=== PATIENT | male | born 1970 | race Caucasian/White ===

== ENCOUNTER 2020-03-28 12:37 | Inpatient (IN) | payer SELFPAY ==
[2020-03-28] MEDS ORDERED: NA CHLORIDE 0.9% 250 ML ONE (13:13)
[2020-03-28] MEDS ORDERED: ONDANSETRON 4 MG/2 ML VIAL ONE (13:13)
[2020-03-28] MEDS ORDERED: MORPHINE 4 MG/ML SYR ONE ×2 (13:13→16:18)
[2020-03-28] MEDS ORDERED: PANTOPRAZOLE 40 MG INJ ONE (13:13)
[2020-03-28 13:36] LABS: Protime INR 1.07
[2020-03-28 13:37] LABS: Absolute Lymphocytes (CBC) 1.1 K/uL (0.7-4.9); Basophils % 0.4 % (0-1.3); Hematocrit 42.3 % (39.6-49.0); Lymphocytes % 9.5 % (15.3-44.8); MPV 8.5 fL (7.6-11.3); RBC Red Blood Cell Count 5.04 M/uL (4.33-5.43)
[2020-03-28 13:49] LABS: ALT/SGPT 33 U/L (12-78); AST/SGOT 27 U/L (15-37); Albumin 3.6 g/dL (3.4-5.0); Alkaline Phosphatase 83 U/L (45-117); BUN Blood Urea Nitrogen 10 mg/dL (7-18); Bicarbonate 27 mmol/L (21-32); Bilirubin Direct 0.2 mg/dL (0-0.2); Bilirubin Total 0.6 mg/dL (0.2-1.0); Glucose Level 122 mg/dL (74-106); Lipase 69 U/L (73-393); Potassium 3.4 mmol/L (3.5-5.1); Sodium Level 138 mmol/L (136-145); Troponin (Emerg Dept Use Only) < 0.02 ng/mL (0.0-0.045)
[2020-03-28] MEDS ORDERED: ACETAMINOPHEN 500 MG TAB PO PRN (14:11)
[2020-03-28] MEDS ORDERED: NA CHLORIDE 0.9% 250 ML IV SCH (15:00)
--- NOTE | 2020-03-28 15:01 | P.HP ---
Certification for Inpatient Patient admitted to: Inpatient With expected LOS: >2 Midnights Patient will require the following post-hospital care: None Practitioner: I am a practitioner with admitting privileges, knowledge of patient current condition, hospital course, and medical plan of care. Services: Services provided to patient in accordance with Admission requirements found in Title 42 Section 412.3 of the Code of Federal Regulations Patient History Date of Service: 03/28/20 Reason for admission: GI Bleed History of Present Illness: 49 yo male with a past medical history of Barrets esophagitis , GERD and HTN admitted with GI bleed started today. Patient states that he started having abdominal pain associated with nausea and vomiting and was found to have some streaks of blood in the vomitus. Denies any fever or chills. Abdominal pain is located in the epigastric region, 8 of 10 severity, sharp nonradiating. Denies any melena. Has similar previous history is and underwent multiple EGDs in the past. Patient is followed by Dr. Kaiser The patient was assessed in the ER and was admitted for further management. Allergies No Known Allergies Allergy (Verified 03/07/14 07:09) Home medications list reviewed: Yes Home Medications: Esomeprazole Mag Trihydrate [Nexium] 40 mg PO DAILY 05/13/16 Amox/Clavulanate [Augmentin 875-125 Tab] 1 each PO BID #14 tab 05/16/16 Doxycycline Hyclate 100 mg PO BID #14 tablet 05/16/16 Hydrocodone Bit/Acetaminophen [Joppa 10-325 Tablet] 1 each PO Q6HP PRN #60 tablet 05/16/16 - Past Medical/Surgical History Diabetic: No Past Medical History: Reviewed- Non-Contributory -: Vazquez's Esophagitis -: Hypertension Past Surgical History: Reviewed- Non-Contributory -: EGD/COLONOSCOPY - Family History Family History: Reviewed- Non-Contributory - Family History Father -: Hypertension Mother -: Hypertension - Social History Smoking Status: Current some day smoker Alcohol use: No CD- Drugs: No Caffeine use: Yes Review of Systems 10-point ROS is otherwise unremarkable Physical Examination - Vital Signs Temperature: 97.8 F Blood Pressure: 161/78 Pulse: 76 Respirations: 18 Pulse Ox (%): 96 - Physical Exam General: Alert, Oriented x3, Moderate distress HEENT: Atraumatic, Normocephalic Neck: Supple, 2+ carotid pulse no bruit Respiratory: Clear to auscultation bilaterally, Normal air movement Cardiovascular: Normal pulses, Regular rate/rhythm, Normal S1 S2 Capillary refill: <2 Seconds Gastrointestinal: W/out hepatosplenomegaly, Other (Epigastric tenderness, no hepatosplenomegaly appreciated. ), Tenderness Musculoskeletal: No clubbing, No swelling Integumentary: No rashes, No significant lesion Neurological: Normal speech, Normal strength at 5/5 x4 extr Lymphatics: No axilla or inguinal lymphadenopathy Rectal: Deferred - Studies Laboratory Data (last 24 hrs) 03/28/20 13:23: PT 12.6 H, INR 1.07, APTT 34.8 03/28/20 13:23: Sodium 138, Potassium 3.4 L, BUN 10, Creatinine 1.03, Glucose 122 H, Total Bilirubin 0.6, AST 27, ALT 33, Alkaline Phosphatase 83, Lipase 69 L 03/28/20 13:23: WBC 11.7 H, Hgb 13.7, Hct 42.3, Plt Count 210 Assessment and Plan - Problems (Diagnosis) (1) Hematemesis Current Visit: No Status: Active (2) Acute upper gastrointestinal hemorrhage Current Visit: No Status: Acute (3) Vazquez's esophagus Current Visit: No Status: Acute (4) Epigastric pain Current Visit: No Status: Acute (5) Gastroesophageal reflux disease Current Visit: No Status: Chronic (6) Hypertension Current Visit: No Status: Chronic (7) Hypokalemia Current Visit: No Status: Acute - Plan Acute upper GI bleed Hematemesis Vazquez's esophagitis GERD Hypokalemia Hypertension Acute epigastric pain Plan Monitor closely under telemetry NPO Serial H&Hs Transfuse p.r.n. IV hydration Replace electrolytes Pain control Protonix drip will get an ultrasound of the abdomen GI consult Titrate antihypertensives GI/DVT prophylaxis Discharge Plan: Home Plan to discharge in: 48 Hours - Advance Directives Does patient have a Living Will: No Does patient have a Durable POA for Healthcare: No Time Spent Managing Pts Care (In Minutes): 45
[2020-03-28] MEDS ORDERED: PROMETHAZINE INJ 25 MG/ML AMP ONE (15:50)
[2020-03-28] MEDS ORDERED: NA CHLORIDE 0.9% 100 ML IV ONE (15:50)
[2020-03-28 16:24] VITALS: BMI 25.7
[2020-03-28 16:52] LABS: Blood Morphology Comment NOTED (NOT SEEN); Platelet Estimate ADEQ; Urine White Blood Cell Casts OK
[2020-03-28 16:53] LABS: Poikilocytosis 1+
[2020-03-28 16:59] LABS: Hematocrit 41.1 % (39.6-49.0)
[2020-03-28] MEDS: NA CHLORIDE 0.9% 1,000 ML IV SCH (17:15)
[2020-03-28] MEDS: HYDRALAZINE HCL 20 MG/ML VIAL IV PRN ×2 (17:34→23:38)
[2020-03-28] MEDS ORDERED: KCL 10 MEQ/100 ML IVPB 10 MEQ/100 ML BAG IV SCH (18:00)
[2020-03-28 18:46] LABS: Hematocrit 41.7 % (39.6-49.0)
[2020-03-28] MEDS ORDERED: KCL 20 MEQ/100 mL IVPB 20 MEQ/100 ML BAG IV SCH (20:00)
[2020-03-28] MEDS: MORPHINE 2 MG/ML SYR IV PRN (20:09)
[2020-03-28] MEDS: ONDANSETRON 4 MG/2 ML VIAL IV PRN (20:13)
--- NOTE | 2020-03-28 20:17 | RAD REPORT ---
EXAM DESCRIPTION: US - Abdomen Exam Complete - 03/28/2020 7:15 pm CLINICAL HISTORY: Abdominal pain. Abdominal Pain COMPARISON: No comparisons FINDINGS: The liver is normal in size, shape and echotexture. No focal liver lesions or intrahepatic biliary dilatation is seen. Tiny gallbladder stones suspected without evidence of wall thickening or pericholecystic fluid. Comm on bile duct is normal in caliber measuring 3 mm. Both kidneys are normal in size, shape and echotexture. No hydronephrosis, focal lesion of concern or perinephric fluid. The spleen is normal in size measuring 10 cm. The pancreas and aorta are obscured by bowel gas. The visualized aspects of the IVC are grossly normal. IMPRESSION: Cholelithiasis.
[2020-03-28 23:07] LABS: Hematocrit 40.7 % (39.6-49.0)
[2020-03-28] MEDS: PANTOPRAZOLE INJ 80 MG in NA CHLORIDE 0.9% 250 ML IV SCH (23:39)
[2020-03-29] MEDS: NA CHLORIDE 0.9% 1,000 ML IV SCH ×2 (01:10→09:54)
[2020-03-29] MEDS: MORPHINE 2 MG/ML SYR IV PRN ×4 (01:11→20:42)
[2020-03-29] MEDS: METOCLOPRAMIDE 10 MG/2mL INJ IV SCH (01:11)
[2020-03-29 04:52] LABS: Absolute Lymphocytes (CBC) 1.5 K/uL (0.7-4.9); Basophils % 0.5 % (0-1.3); Hematocrit 39.8 % (39.6-49.0); Lymphocytes % 12.2 % (15.3-44.8); MPV 8.8 fL (7.6-11.3); RBC Red Blood Cell Count 4.74 M/uL (4.33-5.43)
[2020-03-29 05:06] LABS: BUN Blood Urea Nitrogen 12 mg/dL (7-18); Bicarbonate 26 mmol/L (21-32); Glucose Level 104 mg/dL (74-106); Potassium 3.3 mmol/L (3.5-5.1); Sodium Level 138 mmol/L (136-145)
[2020-03-29] MEDS: ONDANSETRON 4 MG/2 ML VIAL IV PRN (05:53)
--- NOTE | 2020-03-29 07:09 | EKG ---
Test Date: 2020-03-28 Test Time: 13:04:25 Lung Puller: ROM MEASUREMENT RESULTS: Intervals: Rate: 55 MI: 134 QRSD: 114 QT: 438 QTc: 419 [place]: P: 49 MI: 134 QRS: 50 T: 30 INTERPRETIVE STATEMENTS: Sinus bradycardia with marked sinus arrhythmia Otherwise normal ECG Compared to ECG 02/10/2016 10:08:07 No significant changes Electronically Signed On 03-29-20 07:08:03 CDT by Juan Carlos Mcneill
[2020-03-29] MEDS: KCL 20 MEQ/100 mL IVPB 20 MEQ/100 ML BAG IV SCH ×2 (09:00→11:00)
[2020-03-29] MEDS: PANTOPRAZOLE INJ 80 MG in NA CHLORIDE 0.9% 250 ML IV SCH ×2 (09:00→20:39)
[2020-03-29] MEDS: HYDRALAZINE HCL 20 MG/ML VIAL IV PRN (11:52)
--- NOTE | 2020-03-29 12:36 | P.PN ---
Subjective Date of Service: 03/29/20 Chief Complaint: GI Bleed Subjective: No new changes, Improving Review of Systems 10-point ROS is otherwise unremarkable Physical Examination - Vital Signs Temperature: 99.3 F Blood Pressure: 176/82 Pulse: 94 Respirations: 20 Pulse Ox (%): 97 - Physical Exam General: Alert, In no apparent distress HEENT: Atraumatic, Normocephalic Neck: Supple, 2+ carotid pulse no bruit Respiratory: Clear to auscultation bilaterally, Normal air movement Cardiovascular: Normal pulses, Regular rate/rhythm Capillary refill: <2 Seconds Gastrointestinal: Soft and benign, W/out hepatosplenomegaly Musculoskeletal: No clubbing, No swelling Integumentary: No rashes, No breakdown Neurological: Normal speech, Normal strength at 5/5 x4 extr Lymphatics: No axilla or inguinal lymphadenopathy Rectal: Deferred - Studies Laboratory Data (last 24 hrs) 03/28/20 13:23: PT 12.6 H, INR 1.07, APTT 34.8 03/28/20 13:23: Sodium 138, Potassium 3.4 L, BUN 10, Creatinine 1.03, Glucose 122 H, Total Bilirubin 0.6, AST 27, ALT 33, Alkaline Phosphatase 83, Lipase 69 L 03/28/20 13:23: WBC 11.7 H, Hgb 13.7, Hct 42.3, Plt Count 210 Laboratory Last Values WBC 11.7 K/uL (4.3-10.9) H 03/28/20 13:23 RBC 5.04 M/uL (4.33-5.43) 03/28/20 13:23 Hgb 13.7 g/dL (13.6-17.9) 03/28/20 13:23 Hct 42.3 % (39.6-49.0) 03/28/20 13:23 MCV 83.9 fL (80-100) 03/28/20 13:23 MCH 27.1 pg (27.0-35.0) 03/28/20 13:23 MCHC 32.3 g/dL (32.0-36.0) 03/28/20 13:23 RDW 15.0 % (12.1-15.2) 03/28/20 13:23 Plt Count 210 K/uL (152-406) 03/28/20 13:23 MPV 8.5 fL (7.6-11.3) 03/28/20 13:23 Neutrophils % 85.9 % (41.7-73.7) H 03/28/20 13:23 Lymphocytes % 9.5 % (15.3-44.8) L 03/28/20 13:23 Monocytes % 4.0 % (3.3-12.3) 03/28/20 13:23 Eosinophils % 0.2 % (0-4.4) 03/28/20 13:23 Basophils % 0.4 % (0-1.3) 03/28/20 13:23 Absolute Neutrophils 10.1 K/uL (1.8-8.0) H 03/28/20 13:23 Absolute Lymphocytes 1.1 K/uL (0.7-4.9) 03/28/20 13:23 Absolute Monocytes 0.5 K/uL (0.1-1.3) 03/28/20 13:23 Absolute Eosinophils 0.0 K/uL (0-0.5) 03/28/20 13:23 Absolute Basophils 0.0 K/uL (0-0.5) 03/28/20 13:23 Poikilocytosis 1+ 03/28/20 13:23 Morphology Comment Noted (NOT SEEN) 03/28/20 13:23 PT 12.6 SECONDS (9.5-12.5) H 03/28/20 13:23 INR 1.07 03/28/20 13:23 APTT 34.8 SECONDS (24.3-36.9) 03/28/20 13:23 Sodium 138 mmol/L (136-145) 03/28/20 13:23 Potassium 3.4 mmol/L (3.5-5.1) L 03/28/20 13:23 Chloride 103 mmol/L (98-107) 03/28/20 13:23 Carbon Dioxide 27 mmol/L (21-32) 03/28/20 13:23 BUN 10 mg/dL (7-18) 03/28/20 13:23 Creatinine 1.03 mg/dL (0.55-1.3) 03/28/20 13:23 Estimated GFR 76 mL/min (=/>90) L 03/28/20 13:23 Glucose 122 mg/dL (74-106) H 03/28/20 13:23 Calcium 8.8 mg/dL (8.5-10.1) 03/28/20 13:23 Total Bilirubin 0.6 mg/dL (0.2-1.0) 03/28/20 13:23 Direct Bilirubin 0.2 mg/dL (0-0.2) 03/28/20 13:23 AST 27 U/L (15-37) 03/28/20 13:23 ALT 33 U/L (12-78) 03/28/20 13:23 Alkaline Phosphatase 83 U/L (45-117) 03/28/20 13:23 Rapid Troponin I < 0.02 ng/mL (0.0-0.045) 03/28/20 13:23 Serum Total Protein 8.0 g/dL (6.4-8.2) 03/28/20 13:23 Albumin 3.6 g/dL (3.4-5.0) 03/28/20 13:23 Globulin 4.4 g/dL (2.3-3.5) H 03/28/20 13:23 Albumin/Globulin Ratio 0.8 (1.1-1.8) L 03/28/20 13:23 Lipase 69 U/L (73-393) L 03/28/20 13:23 ABO/Rh A POSITIVE 03/28/20 13:23 Solid Phase Ab Screen Negative 03/28/20 13:23 Assessment & Plan - Problems (Diagnosis) (1) Hematemesis Current Visit: No Status: Active (2) Acute upper gastrointestinal hemorrhage Current Visit: No Status: Acute (3) Vazquez's esophagus Current Visit: No Status: Acute (4) Epigastric pain Current Visit: No Status: Acute (5) Gastroesophageal reflux disease Current Visit: No Status: Chronic (6) Hypertension Current Visit: No Status: Chronic (7) Hypokalemia Current Visit: No Status: Acute Physician Review Additional Text: Acute upper GI bleed Hematemesis Vazquez's esophagitis GERD Hypokalemia Hypertension Acute epigastric pain Plan Monitor closely under telemetry NPO Serial H&Hs noted Transfuse p.r.n. IV hydration Replace electrolytes Pain control on Protonix drip ultrasound of the abdomen findings noted GI consult appreciated EGD today Titrate antihypertensives GI/DVT prophylaxis Time Spent Managing Pts Care (In Minutes): 35
[2020-03-29] MEDS ORDERED: LIDOCAINE 1% MPF 5 ML VIAL ONE (15:30)
[2020-03-29] MEDS ORDERED: propofoL 200 MG/20 ML VIAL IV ONE (15:30)
[2020-03-29] MEDS ORDERED: EPINEPHRINE/PF 1 MG/ML AMP ONE (16:25)
--- NOTE | 2020-03-29 17:03 | ENDO RPT ---
[address], [address] EGD PROCEDURE REPORT EXAM DATE: 03/29/2020 PATIENT NAME: Jake Diana MR#: [id number] BIRTHDATE: 1970 ATTENDING: Fran Kaiser Dr STATUS: inpatient - 7 HAND PACKER/PACKAGER: Fide JACKMAN and Terrence Terry CST INDICATIONS: The patient is a 49 yr old Male here for an EGD due to hematemesis and anemia PROCEDURE PERFORMED: EGD with biopsy MEDICATIONS: Per Anesthesia. TOPICAL ANESTHETIC: none CONSENT: The patient understands the risks and benefits of the procedure and understands that these risks include, but are not limited to: sedation, allergic reaction, infection, perforation and/or bleeding. Alternative means of evaluation and treatment include, among others: physical exam, x-rays, and/or surgical intervention. The patient elects to proceed with this endoscopic procedure. DESCRIPTION OF PROCEDURE: During intra-op preparation period all mechanical medical equipment was checked for proper function. Hand hygiene and appropriate measures for infection prevention was taken. Procedure, possible complications, and alternatives including but not limited to the possibility of bleeding, perforation, tear, infection, sepsis, need for surgery, need for blood transfusion, and anesthesia related complications were explained to the patient. After the risks, benefits and alternatives of the procedure were thoroughly explained, Informed consent was verified, confirmed and timeout was successfully executed by the treatment team. The patient was placed in the left lateral position. The patient was anesthetized with topical anesthesia. Through the anesthetized oropharyngeal area, the scope was passed without any difficulty. The [id number] ([id number]) endoscope was introduced through the mouth and advanced to the second portion of the duodenum. Retroflexed views revealed a large hiatal hernia. The gastroscope was then slowly withdrawn and removed. LA Class C esophagitis was found in the lower esophagus. Multiple (2) small 3 A large hiatal hernia was found Mild gastritis was found in the body of the stomach. ADVERSE EVENTS: There were no complications. IMPRESSIONS: 1. LA Class C esophagitis in the lower esophagus esophagus 3. Large hiatal hernia (6 cm HH, DI at 43 cm, and GEJ at 37 cm from the gums) 4. Mild gastritis in the body of the stomach, s/p biopsies 5. No active bleeding nor old blood noted. GI bleed possibly from esophagitis with 2 small esophageal ulcers RECOMMENDATIONS: 1. await biopsy results 2. continue acid suppression therapy REPEAT EXAM: Fran Kaiser Dr eSigned: Fran Kaiser Dr 03/29/2020 5:03 PM cc: CPT CODES: ICD9 CODES: PATIENT NAME: Jake DianaKassandra MR#: [id number]
[2020-03-30] MEDS: NA CHLORIDE 0.9% 1,000 ML IV SCH ×3 (00:38→18:13)
[2020-03-30] MEDS: METOCLOPRAMIDE 10 MG/2mL INJ IV SCH (00:42)
[2020-03-30 06:32] LABS: BUN Blood Urea Nitrogen 11 mg/dL (7-18); Bicarbonate 24 mmol/L (21-32); Glucose Level 93 mg/dL (74-106); Potassium 3.7 mmol/L (3.5-5.1); Sodium Level 138 mmol/L (136-145)
[2020-03-30] MEDS: PANTOPRAZOLE INJ 80 MG in NA CHLORIDE 0.9% 250 ML IV SCH (06:48)
[2020-03-30 07:07] LABS: Absolute Lymphocytes (CBC) 1.4 K/uL (0.7-4.9); Basophils % 0.7 % (0-1.3); Hematocrit 38.2 % (39.6-49.0); Lymphocytes % 16.4 % (15.3-44.8); MPV 9.4 fL (7.6-11.3); RBC Red Blood Cell Count 4.55 M/uL (4.33-5.43)
[2020-03-30] MEDS: MORPHINE 2 MG/ML SYR IV PRN (07:57)
[2020-03-30] MEDS: ONDANSETRON 4 MG/2 ML VIAL IV PRN ×2 (09:33→17:09)
[2020-03-30] MEDS ORDERED: FENTANYL CITR 100 MCG/2 ML IV ONE (09:42)
--- NOTE | 2020-03-30 09:59 | P.PN ---
Subjective Date of Service: 03/30/20 Chief Complaint: GI Bleed, hematemesis Subjective: New changes (No further hematemesis noted. But he continues to have RADHA pain, ~ 6/10 requiring Morphine 2 mg IV q 4 hours with complaints of nausea not resolved with Zofran 4 mg. He had cholelithiasis on U/S abdomen on admission but no pericholecystic fluid or other abnormalities on U/S.) Review of Systems 10-point ROS is otherwise unremarkable General: Weakness Gastrointestinal: Nausea, Abdominal Pain Physical Examination - Vital Signs Temperature: 98.1 F Blood Pressure: 180/87 Pulse: 86 Respirations: 17 Pulse Ox (%): 97 - Physical Exam General: Alert, Oriented x3, Cooperative, Mild distress (due to RADHA pain and nausea) HEENT: Atraumatic, Normocephalic, PERRLA, EOMI Neck: Supple Respiratory: Normal air movement Cardiovascular: Normal pulses Gastrointestinal: No rebound, Tenderness (RADHA), Guarding (mild) Neurological: Normal speech, Normal strength at 5/5 x4 extr Assessment And Plan - Current Problems (Diagnosis) (1) Nausea Current Visit: Yes Status: Acute (2) Ulcer, esophagus Current Visit: Yes Status: Acute (3) Esophagitis Current Visit: Yes Status: Acute (4) Gastritis Current Visit: Yes Status: Acute (5) Hiatal hernia Current Visit: Yes Status: Acute (6) Hematemesis Current Visit: No Status: Active (7) Acute upper gastrointestinal hemorrhage Current Visit: No Status: Acute (8) Epigastric pain Current Visit: No Status: Acute - Plan REC:1) continue PPI therapy, but can decrease from drip to IV q 12 hours 2) check HIDA scan 3) switch Morphine to Fentanyl (see if nausea resolves) 4) add prn Phenergan IV to Zofran for nausea control 5) monitor labs Physician Review Additional Text: Acute upper GI bleed Hematemesis Vazquez's esophagitis GERD Hypokalemia Hypertension Acute epigastric pain Plan Monitor closely under telemetry NPO Serial H&Hs noted Transfuse p.r.n. IV hydration Replace electrolytes Pain control on Protonix drip ultrasound of the abdomen findings noted GI consult appreciated EGD today Titrate antihypertensives GI/DVT prophylaxis
[2020-03-30] MEDS ORDERED: SODIUM CHLORIDE 0.9% 10ML INJ IV PRN (10:07)
--- NOTE | 2020-03-30 10:48 | P.PN ---
Subjective Date of Service: 03/30/20 Chief Complaint: GI Bleed, hematemesis Patient is complaining of abdominal pain and nausea after eating liquid diet. Endoscopy report reviewed: 2 small esophageal ulcers will could be the source of GI bleed. Physical Examination - Vital Signs Temperature: 98.1 F Blood Pressure: 180/87 Pulse: 86 Respirations: 17 Pulse Ox (%): 97 - Physical Exam General: Alert, In no apparent distress, Oriented x3 HEENT: Mucous membr. moist/pink Neck: Supple, JVD not distended Respiratory: Clear to auscultation bilaterally, Normal air movement Cardiovascular: No edema, Regular rate/rhythm, Normal S1 S2 Gastrointestinal: Normal bowel sounds, Non-distended, Tenderness (Epigastrium) Musculoskeletal: No swelling, No erythema Integumentary: No rashes Neurological: Normal speech, Normal strength at 5/5 x4 extr Assessment And Plan Physician Review Additional Text: Acute upper GI bleed Hematemesis Vazquez's esophagitis GERD Hypokalemia Hypertension Acute epigastric pain Plan GI input appreciated. Continue IV protonix RUQ sonogram reports multiple small gallstones, no evidence of cholecystitis. HIDA scan requested by GI Slight drop in hemoglobin otherwise stable. Transfuse p.r.n. Contain IV hydration Replace electrolytes Pain control: Fentanyl IV prn
[2020-03-30] MEDS: PROMETHAZINE INJ 25 MG/ML AMP IV PRN ×2 (12:50→19:46)
[2020-03-30] MEDS ORDERED: PROMETHAZINE INJ 25 MG/ML AMP IV ONE (13:37)
[2020-03-30] MEDS: FENTANYL CITR 100 MCG/2 ML IV PRN ×2 (15:11→19:41)
[2020-03-30] MEDS: PANTOPRAZOLE 40 MG INJ IVP SCH (18:10)
[2020-03-31] MEDS: PROMETHAZINE INJ 25 MG/ML AMP IV PRN ×2 (02:28→08:34)
[2020-03-31] MEDS: NA CHLORIDE 0.9% 1,000 ML IV SCH ×2 (02:29→13:38)
[2020-03-31] MEDS: ONDANSETRON 4 MG/2 ML VIAL IV PRN (03:33)
[2020-03-31] MEDS ORDERED: LORazepam 2 MG/ML VIAL IV ONE (04:57)
[2020-03-31 05:49] VITALS: O2SAT 98
--- NOTE | 2020-03-31 08:10 | RAD REPORT ---
EXAM DESCRIPTION: NM - Hepatobiliary System W/ Ph - 03/31/2020 6:29 am CLINICAL HISTORY: Abdominal pain TECHNIQUE: The patient was administered 6.2 millicuries technetium Choletec intravenous and images o f the abdomen obtained for 43 minutes. Patient was given 1.8 micrograms Kinevac intravenously. After 9 minutes to the patient could not continue to lay still and the examination was terminated. A gallbl adder ejection fraction could not be obtained. FINDINGS Liver demonstrates prompt radiotracer uptake. Activity is seen within the gallbladder by 15 minutes. Uptake is seen within small bowel. The gallbladder ejection fraction could not be obtained IMPRESSION: No evidence of acute cholecystitis
[2020-03-31] MEDS: PANTOPRAZOLE 40 MG INJ IVP SCH (08:34)
--- NOTE | 2020-03-31 09:02 | P.PN ---
Subjective Date of Service: 03/31/20 Chief Complaint: GI Bleed, hematemesis Patient was complaining of abdominal pain and nausea overnight. Physical Examination - Vital Signs Temperature: 98.5 F Blood Pressure: 142/78 Pulse: 92 Respirations: 20 Pulse Ox (%): 96 - Physical Exam General: In no apparent distress, Oriented x3 HEENT: Mucous membr. moist/pink Respiratory: Clear to auscultation bilaterally, Normal air movement Cardiovascular: No edema, Normal pulses, Regular rate/rhythm Gastrointestinal: Normal bowel sounds, Tenderness (Diffuse) Musculoskeletal: No swelling, No erythema Integumentary: No rashes Assessment And Plan Physician Review Additional Text: Acute upper GI bleed Hematemesis Vazquez's esophagitis GERD Hypokalemia Hypertension Acute epigastric pain Plan Continue IV protonix RUQ sonogram reports multiple small gallstones, no evidence of cholecystitis. HIDA scan: No evidence of acute cholecystitis. Hemoglobin is stable Contain IV hydration Replace electrolytes Pain control: Fentanyl IV prn GI to follow.
[2020-03-31 09:31] LABS: Absolute Lymphocytes (CBC) 1.2 K/uL (0.7-4.9); Basophils % 0.7 % (0-1.3); Hematocrit 40.4 % (39.6-49.0); Lymphocytes % 13.2 % (15.3-44.8); MPV 8.4 fL (7.6-11.3); RBC Red Blood Cell Count 4.85 M/uL (4.33-5.43)
[2020-03-31 09:57] LABS: ALT/SGPT 19 U/L (12-78); AST/SGOT 18 U/L (15-37); Alkaline Phosphatase 68 U/L (45-117); BUN Blood Urea Nitrogen 8 mg/dL (7-18); Bicarbonate 25 mmol/L (21-32); Bilirubin Total 0.4 mg/dL (0.2-1.0); Glucose Level 107 mg/dL (74-106); Potassium 3.4 mmol/L (3.5-5.1); Sodium Level 135 mmol/L (136-145)
--- NOTE | 2020-03-31 17:01 | P.DS ---
Admission Date: 03/28/20 Discharge Date: 03/31/20 Disposition: ROUTINE DISCHARGE Discharge Condition: GOOD Reason for Admission: GI Bleed, hematemesis - Problems (1) Hematemesis Status: Active (2) Acute upper gastrointestinal hemorrhage Status: Acute (3) Vazquez's esophagus Status: Acute (4) Epigastric pain Status: Acute (5) Gastroesophageal reflux disease Status: Chronic (6) Hypertension Status: Chronic (7) Hypokalemia Status: Acute Brief History of Present Illness: 49 yo male with a past medical history of Barrets esophagitis , GERD and HTN admitted with GI bleed started today. Patient states that he started having abdominal pain associated with nausea and vomiting and was found to have some streaks of blood in the vomitus. Denies any fever or chills. Abdominal pain is located in the epigastric region, 8 of 10 severity, sharp nonradiating. Denies any melena. Has similar previous history is and underwent multiple EGDs in the past. Patient is followed by Dr. Kaiser The patient was assessed in the ER and was admitted for further management. Hospital Course: The patient was admitted and was started on Protonix drip. Hemoglobin and hematocrit were serially monitored. GI was consulted. Pain was controlled well. GI performed an endoscopy which showed esophagitis with small esophageal ulcerations along with gastritis and had a large hiatal hernia. He also had a HIDA scan which was negative for acute cholecystitis. He did not had any further episodes of GI bleed. Patient wanted go home and is being discharged home today in stable condition with advice to follow up with PCP in 1 week and also with GI in 1-2 weeks Vital Signs/Physical Exam: Temp Pulse Resp BP Pulse Ox 98.9 F 90 18 152/79 H 94 03/31/20 12:00 03/31/20 12:00 03/31/20 12:00 03/31/20 12:03/31/20 12:00 General: Alert, In no apparent distress HEENT: Atraumatic, Normocephalic Neck: Supple, 2+ carotid pulse no bruit Respiratory: Clear to auscultation bilaterally, Normal air movement Cardiovascular: Normal pulses, Regular rate/rhythm Capillary refill: <2 Seconds Gastrointestinal: Soft and benign, W/out hepatosplenomegaly Musculoskeletal: No clubbing, No swelling Integumentary: No rashes Neurological: Normal speech, Normal strength at 5/5 x4 extr Lymphatics: No axilla or inguinal lymphadenopathy Rectal: Deferred Laboratory Data at Discharge: WBC 9.4 K/uL (4.3-10.9) 03/31/20 09:21 Hgb 13.2 g/dL (13.6-17.9) L 03/31/20 09:21 Hct 40.4 % (39.6-49.0) 03/31/20 09:21 Plt Count 195 K/uL (152-406) 03/31/20 09:21 PT 12.6 SECONDS (9.5-12.5) H 03/28/20 13:23 INR 1.07 03/28/20 13:23 APTT 34.8 SECONDS (24.3-36.9) 03/28/20 13:23 Sodium 135 mmol/L (136-145) L 03/31/20 09:21 Potassium 3.4 mmol/L (3.5-5.1) L 03/31/20 09:21 BUN 8 mg/dL (7-18) 03/31/20 09:21 Creatinine 0.81 mg/dL (0.55-1.3) 03/31/20 09:21 Glucose 107 mg/dL (74-106) H 03/31/20 09:21 Total Bilirubin 0.4 mg/dL (0.2-1.0) 03/31/20 09:21 AST 18 U/L (15-37) 03/31/20 09:21 ALT 19 U/L (12-78) 03/31/20 09:21 Alkaline Phosphatase 68 U/L (45-117) 03/31/20 09:21 Lipase 69 U/L (73-393) L 03/28/20 13:23 Home Medications: Pantoprazole [Protonix Tab] 40 mg PO BID #60 tab 03/31/20 New Medications: Pantoprazole [Protonix Tab] 40 mg PO BID #60 tab Diet: Regular Activity: Ad marquita Followup: Fran Kaiser MD [ASSOCIATE-ACTIVE - CAN ADMIT] -
[2020-03-31 17:45] VITALS: BP 146/92; TEMP 98.6
[2020-04-02] MEDS ORDERED: FENTANYL 75 MCG/PATCH TD SCH (09:00)
--- NOTE | 2020-04-04 12:15 | ER ---
Nurse's Notes [facility] Name: Jake Diana Age: 49 yrs Sex: Male : 1970 Arrival Date: 03/28/2020 Time: 12:39 Bed 4 Private MD: Diagnosis: Hematemesis;Vazquez's esophagus Presentation: 03/28 12:51 Chief complaint: Anterior chest pain 10/10 and vomiting dark red blood x 2 days. hb Coronavirus screen: Proceed with normal triage. Ebola Screen: No symptoms or risks identified at this time. Initial Sepsis Screen: Does the patient meet any 2 criteria? No. Patient's initial sepsis screen is negative. Does the patient have a suspected source of infection? No. Patient's initial sepsis screen is negative. Risk Assessment: Do you want to hurt yourself or someone else? Patient reports no desire to harm self or others. Onset of symptoms was March 27, 2020. 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 - Social history:: Smoking status: Patient reports the use of cigarette tobacco products, smokes one pack cigarettes per day. - Family history:: not pertinent. - Hospitalizations: : No recent hospitalization is reported. Screenin:00 Abuse screen: Denies threats or abuse. Denies injuries from another. Nutritional jl7 screening: No deficits noted. Tuberculosis screening: No symptoms or risk factors identified. Fall Risk IV access (20 points). Assessment: 13:10 General: Appears in no apparent distress. uncomfortable, Behavior is cooperative, jl7 agitated. Pain: Complains of pain in "My esophagus" Pain does not radiate. Pain currently is 10 out of 10 on a pain scale. Quality of pain is described as burning, Pain began gradually, Is continuous. Neuro: Level of Consciousness is awake, alert, obeys commands. Cardiovascular: Patient's skin is warm and dry. Respiratory: Airway is patent Respiratory effort is even, unlabored, Respiratory pattern is regular, symmetrical. GI: Reports nausea. : No signs and/or symptoms were reported regarding the genitourinary system. Derm: Skin is pink, warm \\T\\ dry. 14:10 Reassessment: Patient appears in no apparent distress at this time. Patient and/or ca1 family updated on plan of care and expected duration. Pain level reassessed. Patient is alert, oriented x 3, equal unlabored respirations, skin warm/dry/pink. 15:16 Reassessment: Patient appears in no apparent distress at this time. Patient and/or ca1 family updated on plan of care and expected duration. Pain level reassessed. Patient is alert/active/playful, equal unlabored respirations, skin warm/dry/pink. 15:49 Reassessment: Patient appears in no apparent distress at this time. Patient is alert, ca1 oriented x 3, equal unlabored respirations, skin warm/dry/pink. 16:26 Reassessment: BP elevated. Notified provider. No order at this time. Notified gabby Aldana RN. Vital Signs: 12:51 BP 166 / 94; Pulse 58; Resp 20; Temp 97.7; Pulse Ox 100% on R/A; Weight 88.45 kg; hb Height 6 ft. 1 in. (185.42 cm); Pain 10/10; 13:04 BP 175 / 98; Pulse 61; Resp 16; Pain 10/10; jl7 13:30 BP 175 / 72; Pulse 56; Resp 16; Pulse Ox 96% ; jl7 14:00 BP 164 / 75; Pulse 57; Resp 19 S; Pulse Ox 94% on R/A; Pain 8/10; jl7 15:00 BP 167 / 91; Pulse 61; Resp 17 S; Pulse Ox 96% on R/A; ca1 15:49 BP 189 / 97; Pulse 87; Resp 20 S; Pulse Ox 99% on R/A; ca1 16:26 BP 182 / 95; Pulse 63; Resp 16 S; Pulse Ox 95% on R/A; ca1 12:51 Body Mass Index 25.73 (88.45 kg, 185.42 cm) hb ED Course: 12:39 Patient arrived in ED. ag5 12:52 Triage completed. hb 12:53 Arm band placed on. hb 12:56 Jayesh Mckeon MD is Attending Physician. rn 13:10 Patient has correct armband on for positive identification. Bed in low position. Call [facility] light in reach. Side rails up X 1. ekg monitor tech on. Pulse ox on. NIBP on. 13:10 EKG done, by ED staff, reviewed by Jayesh Mckeon MD. [facility] 13:24 Tim Rain, FERNANDO is Primary Nurse. [facility] 13:24 Initial lab(s) drawn, by nc, sent to lab. T\\T\\S collected, blood band applied to patient. jl7 Inserted saline lock: 22 gauge in left hand, using aseptic technique. Blood collected. 14:00 Patient maintains SpO2 saturation greater than 95% on room air. [facility] 14:09 Rocco Berman MD is Hospitalizing Provider. rn 15:16 No provider procedures requiring assistance completed. Patient transferred, IV remains ca1 in place. 16:45 Repeat lab(s) drawn. by [employer], sent to lab. ca1 Administered Medications: 13:24 Drug: Zofran (Ondansetron) 4 mg Route: IVP; Site: left hand; ca1 13:50 Follow up: Response: Nausea unchanged jl7 14:30 Follow up: Response: No adverse reaction; Nausea is decreased ca1 13:26 Drug: morphine 4 mg {Note: Rass - 0.} Route: IVP; Site: left hand; ca1 13:55 Follow up: Response: No adverse reaction; Pain is unchanged, physician notified 7 15:00 Follow up: Response: No adverse reaction; Pain is decreased; RASS: Alert and Calm (0) ca1 13:27 Drug: ProTONIX 40 mg Route: IVP; Site: left hand; ca1 14:01 Follow up: Response: No adverse reaction 7 15:47 Follow up: Response: No adverse reaction ca1 13:27 Drug: ProTONIX 8 mg/hr Route: IV; Rate: 25 ml/hr; Site: left hand; ca1 15:47 Follow up: Response: No adverse reaction; IV Status: Infusion continued upon admission ca1 16:10 Drug: morphine 4 mg {Note: RASS - 0.} Route: IVP; Site: left hand; ca1 16:28 Follow up: Response: No adverse reaction; Pain is decreased; RASS: Alert and Calm (0) ca1 16:14 Drug: Phenergan 12.5 mg Route: IVP; Site: left hand; ca1 16:28 Follow up: Response: No adverse reaction; Nausea is decreased ca1 Outcome: 14:10 Decision to Hospitalize by Provider. rn 16:07 Admitted to Med/surg accompanied by tech, via wheelchair, room 221, with chart, Report ca1 called to FERNANDO Aldana 16:07 Condition: stable 16:07 Instructed on the need for admit. 17:00 Patient left the ED. ca1 Signatures: Jayesh Mckeon MD MD rn Baxter, Heather, RN RN hb Martinez, Maria [facility] Tim Rain RN RN jl7 Roseanne Hammonds RN RN ca1 Obey Norman 5 Corrections: (The following items were deleted from the chart) 13:25 13:24 ProTONIX 8 mg/hr IV at 25 ml/hr in left hand ca1 ca1
--- NOTE | 2020-04-04 12:16 | EDPHYS ---
Physician Documentation [facility] Name: Jake Diana Age: 49 yrs Sex: Male : 1970 Arrival Date: 03/28/2020 Time: 12:39 Bed 4 Private MD: ED Physician Jayesh Mckeon HPI: 03/28 13:45 This 49 yrs old Male presents to ER via Ambulatory with complaints of rn hematemesis. 13:46 The patient presents to the emergency department vomiting blood, a small amount, dark rn brown. Onset: The symptoms/episode began/occurred today. Abdominal pain: located in the epigastric area. Modifying factors: The symptoms are alleviated by nothing, the symptoms are aggravated by nothing. Severity of symptoms: At their worst the symptoms were moderate in the emergency department the symptoms are unchanged. The patient has experienced similar episodes in the past. Reports has Vazquez's Esophagus, has done this multiple times, his GI doctor is doctor dewey, reports small amount of dark blood when vomiting, along with epigastric and chest pain. Identical to previous episodes. States compliant with antacids. . 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 - Social history:: Smoking status: Patient reports the use of cigarette tobacco products, smokes one pack cigarettes per day. - Family history:: not pertinent. - Hospitalizations: : No recent hospitalization is reported. ROS: 13:46 Constitutional: Negative for fever, chills, and weight loss, Eyes: Negative for injury, rn pain, redness, and discharge, Neck: Negative for injury, pain, and swelling, Cardiovascular: Negative for palpitations, and edema, Respiratory: Negative for shortness of breath, cough, wheezing, and pleuritic chest pain, Abdomen/GI: + abd pain and hematemesis MS/Extremity: Negative for injury and deformity, Skin: Negative for injury, rash, and discoloration, Neuro: Negative for headache, weakness, numbness, tingling, and seizure. Exam: 13:46 Constitutional: This is a well developed, well nourished patient who is awake, alert, rn wretching with small amount of dark emesis in bag Head/Face: Normocephalic, atraumatic. ENT: Dry MM Cardiovascular: Regular rate and rhythm. No pulse deficits. Respiratory: No increased work of breathing, no retractions or nasal flaring. Abdomen/GI: soft, non-tender MS/ Extremity: Pulses equal, no cyanosis. Neurovascular intact. Full, normal range of motion. Equal circumference. Neuro: Awake and alert, GCS 15, oriented to person, place, time, and situation. Cranial nerves II-XII grossly intact. Motor strength 5/5 in all extremities. Sensory grossly intact. 14:05 ECG was reviewed by the Attending Physician. rn Vital Signs: 12:51 BP 166 / 94; Pulse 58; Resp 20; Temp 97.7; Pulse Ox 100% on R/A; Weight 88.45 kg; hb Height 6 ft. 1 in. (185.42 cm); Pain 10/10; 13:04 BP 175 / 98; Pulse 61; Resp 16; Pain 10/10; jl7 13:30 BP 175 / 72; Pulse 56; Resp 16; Pulse Ox 96% ; jl7 14:00 BP 164 / 75; Pulse 57; Resp 19 S; Pulse Ox 94% on R/A; Pain 8/10; jl7 15:00 BP 167 / 91; Pulse 61; Resp 17 S; Pulse Ox 96% on R/A; ca1 15:49 BP 189 / 97; Pulse 87; Resp 20 S; Pulse Ox 99% on R/A; ca1 16:26 BP 182 / 95; Pulse 63; Resp 16 S; Pulse Ox 95% on R/A; ca1 12:51 Body Mass Index 25.73 (88.45 kg, 185.42 cm) hb MDM: 12:56 Patient medically screened. rn 14:08 Differential diagnosis: gastritis, varices, Vazquez's Esophagus. Data reviewed: vital rn signs, nurses notes, lab test result(s), EKG, and as a result, I will admit patient. Counseling: I had a detailed discussion with the patient and/or guardian regarding: the historical points, exam findings, and any diagnostic results supporting the discharge/admit diagnosis, lab results, radiology results, the need for further work-up and treatment in the hospital. Response to treatment: the patient's symptoms have mildly improved after treatment, and as a result, I will admit patient. Admission orders: after a detailed discussion of the patient's condition and case, the admit orders are written by me. ED course: Dr. Dewey contacted, pt states is his private GI doctor and has been seen for this multiple times in past, no need for emergent blood transfusion, will admit to Dr. Berman with Dr. Dewey consult. . 03/28 13:00 Order name: CBC with Diff rn 03/28 13:00 Order name: Basic Metabolic Panel; Complete Time: 14: rn 03/28 13:00 Order name: Protime (+inr); Complete Time: 13:45 rn 03/28 13:00 Order name: Ptt, Activated; Complete Time: 13:45 rn 03/28 13:00 Order name: LFT's; Complete Time: 14: rn 03/28 13:00 Order name: Lipase; Complete Time: 14: rn 03/28 13:00 Order name: Type And Screen; Complete Time: 16:16 rn 03/28 13:00 Order name: Troponin (emerg Dept Use Only); Complete Time: 14: rn 03/28 16:53 Order name: CBC Smear Scan EDMS 03/28 13:00 Order name: IV Start; Complete Time: 13:17 rn 03/28 13:00 Order name: EKG; Complete Time: 13:02 rn 03/28 13:00 Order name: EKG - Nurse/Tech; Complete Time: 13:02 rn EC:05 Rate is 55 beats/min. Rhythm is regular. QRS [place] is Normal. OK interval is normal. QRS rn interval is normal. QT interval is normal. No Q waves. T waves are Normal. No ST changes noted. Clinical impression: Sinus bradycardia. Interpreted by me. Reviewed by me. Administered Medications: 13:24 Drug: Zofran (Ondansetron) 4 mg Route: IVP; Site: left hand; ca1 13:50 Follow up: Response: Nausea unchanged jl7 14:30 Follow up: Response: No adverse reaction; Nausea is decreased ca1 13:26 Drug: morphine 4 mg {Note: Rass - 0.} Route: IVP; Site: left hand; ca1 13:55 Follow up: Response: No adverse reaction; Pain is unchanged, physician notified jl7 15:00 Follow up: Response: No adverse reaction; Pain is decreased; RASS: Alert and Calm (0) ca1 13:27 Drug: ProTONIX 40 mg Route: IVP; Site: left hand; ca1 14:01 Follow up: Response: No adverse reaction jl7 15:47 Follow up: Response: No adverse reaction ca1 13:27 Drug: ProTONIX 8 mg/hr Route: IV; Rate: 25 ml/hr; Site: left hand; ca1 15:47 Follow up: Response: No adverse reaction; IV Status: Infusion continued upon admission ca1 16:10 Drug: morphine 4 mg {Note: RASS - 0.} Route: IVP; Site: left hand; ca1 16:28 Follow up: Response: No adverse reaction; Pain is decreased; RASS: Alert and Calm (0) ca1 16:14 Drug: Phenergan 12.5 mg Route: IVP; Site: left hand; ca1 16:28 Follow up: Response: No adverse reaction; Nausea is decreased ca1 Disposition: 03/28/20 14:10 Hospitalization ordered by Rocco Berman for Observation. Preliminary diagnosis are Hematemesis, Vazquez's esophagus. - Bed requested for Telemetry/MedSurg (observation). - Status is Observation. ca1 - Condition is Stable. - Problem is an ongoing problem. - Symptoms have improved. Signatures: Dispatcher [employer] EDMS Jayesh Mckeon MD MD rn Marinas, Patrick, SINGEING TORCH OPERATOR SINGEING TORCH OPERATOR pm1 Laura Cuello RN RN Leona Garcia eb Roseanne Hammonds RN RN ca1 Tim Rain RN jl7 Corrections: (The following items were deleted from the chart) 15:50 14:10 Hospitalization Ordered by Rocco Berman MD for Observation. Preliminary eb diagnosis is Hematemesis; Vazquez's esophagus. Bed requested for Telemetry/MedSurg (observation). Status is Observation. Condition is Stable. Problem is an ongoing problem. Symptoms have improved. rn 17:00 15:50 03/28/2020 14:10 Hospitalization Ordered by Rocco Berman MD for Observation. ca1 Preliminary diagnosis is Hematemesis; Vazquez's esophagus. Bed requested for Telemetry/MedSurg (observation). Status is Observation. Condition is Stable. Problem is an ongoing problem. Symptoms have improved. eb
--- NOTE | 2020-04-05 18:36 | CON ---
Date of Consultation: 03/29/2020 Reason For Consultation: Hematemesis, nausea, vomiting. History Of Present Illness: Patient is a 49-year-old white male with history of acid reflux disease, bursitis, hypertension, depression, was admitted to the hospital due to upper gastrointestinal bleed ing with hematemesis. The patient states he has had 3-4 emesis in the past 24-36 hours with nausea, vomiting. He denies any significant abdominal pain, fevers, chills, change in bowel habits, change i n weight, melena, hematochezia, lightheadedness, or dizziness. He does note this is his third bout o f hematemesis since 1991, so he has had 2 prior bouts of this. Past Medical History: Significant for hypertension, vitiligo, and 2 prior bouts of hematemesis start ing since 1991. He has Vazquez's esophagus. Home Medications: Include Nexium, Augmentin, doxycycline, [place]. Allergies: NKDA. Social History: . No children. Tobacco, 1 pack per day. No alcohol. Family History: Father of myocardial infarction with a history of hypertension, coronary diseas e. Mother is alive with history of hypertension. Review of Systems: Patient has hematemesis, nausea, vomiting. He denies any abdominal pain, fevers, chills, night sweat s, change in bowel habits, change in weight, melena, hematochezia, lightheadedness, dizziness, hematu joan, or hemoptysis. Just some anxiety, no depression. No muscle aches, joint aches, backaches. No rashes. No seizure, syncope, chest pain, or shortness of breath. Physical Examination: Vital Signs: He is 6 feet 1 inch, 104 pounds, BMI of 25.7. He has a temperature 99.3 degrees Fahrenheit, pulse 94, respirations 20, blood pressure 176/82, O2 sa turation 97%. General: He is a well-nourished, well-developed male lying in bed, mildly disheveled, mild distress due to his anxiety over his vomiting blood. HEENT: Normocephalic, atraumatic. Anicteric. Pupils equal, round, reactive to light. Extraocular movements intact. Oropharynx is clear. Neck: Supple. No masses. Respirations: Clear to auscultation bilaterally cardiac: Regular rate and rhythm. No gallops or ru bs. Abdomen: Positive bowel sounds. Soft, nontender, nondistended. No hepatosplenomegaly. Extremities: No clubbing, cyanosis, or edema. 2+ pulses. Neuro: Alert and oriented x3. Grossly nonfocal. 5/5 motor strength and sensation to light touch. Laboratory Data: Patient has a white count of 12.1; hemoglobin 12.9, down from 13.7 on admission; he matocrit 40 with MCV of 84, platelet count 198, polys of 79%, lymphocytes 12%, monocytes 9%. PT 12.6 , INR 1.1, PTT 34.8. The patient has a sodium 138, potassium 3.3, chloride 107, bicarb 26, BUN 12, c reatinine 0.9, glucose of 104, calcium 8.8. Yesterday, a total bilirubin 0.6, direct bilirubin 0.2, AST of 27, ALT 33, alkaline phosphatase 83. Troponin I less than 0.02. Total protein 8.0, albumin 3 .6, lipase 69, which is low. Imaging: Ultrasound of abdomen revealed cholelithiasis, but there was no gallbladder wall thickening or pericholecystic fluid. Bile duct was normal measuring 3 mm. Impression: 1.Hematemesis 3-4 times in the past 24-36 hours. This is his third time he has had hematemesis sinc e 1991. He also notes nausea, vomiting, but denies any fevers, chills, night sweats, change in bowel habits, change in weight, melena, hematochezia, hematuria, or any other bleeding. He denies any lig htheadedness or dizziness. 2.History of hypertension, vitiligo, Vazquez's esophagus in the past. Recommendation: 1.EGD. 2.Serial H and H, and transfuse p.r.n. 3.PPI therapy. 4.The patient is to discontinue tobacco. 5.Keep patient n.p.o. for EGD. SEBASTIÁN/OMARI Voice ID: [id number] Report ID: [id number]
== END 2020-03-31 17:11 | disposition home or self-care (01) | DRG 382 ==
LOC: ER 12:37 → ERHOLD 14:12 → 2ND 16:36
PROVIDERS: ADMIT Family Medicine; ATTEND Internal Medicine
PROC: 0DB68ZX Excision of Stomach, Via Natural or Artificial Opening Endoscopic, Diagnostic (ICD-10-PCS; principal; 2020-03-29 16:30)
DX: K22.11 Ulcer of esophagus with bleeding (principal); K29.71 Gastritis, unspecified, with bleeding; K21.0 Gastro-esophageal reflux disease with esophagitis; I10 Essential (primary) hypertension; F17.200 Nicotine dependence, unspecified, uncomplicated; K44.9 Diaphragmatic hernia without obstruction or gangrene; E87.6 Hypokalemia; Z79.899 Other long term (current) drug therapy; Z79.891 Long term (current) use of opiate analgesic
CPT/HCPCS: 36415; 76700; 78227; 80048; 80053; 80076; 83690; 84484; 85014; 85018; 85025; 85610; 85730; 86850; 86900; 86901; 88305; 88312; 93005; 96365; 96366; 96375; 99285; A9537; C9113; J0171; J0360; J2270; J2405; J2550; J2704; J2765; J2805; J3010; J3480; J7030

== ENCOUNTER 2021-02-21 19:50 | Inpatient (IN) | payer SELFPAY ==
[2021-02-21] MEDS ORDERED: NA CHLORIDE 0.9% 250 ML ONE (22:36)
[2021-02-21] MEDS ORDERED: PANTOPRAZOLE 40 MG INJ ONE (22:36)
[2021-02-21] MEDS ORDERED: ONDANSETRON 4 MG/2 ML VIAL ONE (22:36)
[2021-02-21 22:44] LABS: Absolute Lymphocytes (CBC) 1.1 K/uL (0.7-4.9); Basophils % 0.3 % (0-1.3); Hematocrit 43.4 % (39.6-49.0); Lymphocytes % 11.8 % (15.3-44.8); MPV 8.8 fL (7.6-11.3)
[2021-02-21 23:15] LABS: Protime INR 1.05
[2021-02-21 23:23] LABS: ALT/SGPT 45 U/L (12-78); AST/SGOT 33 U/L (15-37); Albumin 3.7 g/dL (3.4-5.0); Alkaline Phosphatase 93 U/L (45-117); BUN Blood Urea Nitrogen 10 mg/dL (7-18); Bicarbonate 25 mmol/L (21-32); Bilirubin Direct 0.1 mg/dL (0-0.2); Bilirubin Total 0.4 mg/dL (0.2-1.0); Glucose Level 110 mg/dL (74-106); Lipase 51 U/L (73-393); NT PRO-BNP 575 pg/mL (<125); Potassium 3.7 mmol/L (3.5-5.1); Protein, Total 8.3 g/dL (6.4-8.2); Sodium Level 136 mmol/L (136-145); Troponin (Emerg Dept Use Only) < 0.02 ng/mL (0.0-0.045)
--- NOTE | 2021-02-21 23:38 | EDPHYS ---
Physician Documentation [facility] Name: Jake Diana Age: 50 yrs Sex: Male : 1970 Arrival Date: 02/21/2021 Time: 19:52 Bed 27 Private MD: ED Physician Hakeem Elliott HPI: 02/21 22:12 This 50 yrs old Male presents to ER via Ambulatory with complaints of yousuf Vomitting Blood. 22:12 The patient presents with abdominal pain in the epigastric area, in the upper abdomen. yousuf Onset: The symptoms/episode began/occurred 2 day(s) ago. The patient presents to the emergency department vomiting blood. Onset: The symptoms/episode began/occurred 2 day(s) ago. Abdominal pain: described as crampy. Modifying factors: The symptoms are alleviated by nothing, the symptoms are aggravated by food, movement, PO intake. Associated signs and symptoms: The patient has no apparent associated signs or symptoms. The symptoms do not radiate. Associated signs and symptoms: Pertinent positives: nausea and vomiting, vomiting, vomiting blood, COFFEE GROUNDS. 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 - Social history:: Smoking status: unknown. - Family history:: not pertinent. ROS: 22:14 Constitutional: Negative for fever, chills, and weight loss, Eyes: Negative for injury, yousuf pain, redness, and discharge, ENT: Negative for injury, pain, and discharge, Neck: Negative for injury, pain, and swelling, Cardiovascular: Negative for chest pain, palpitations, and edema, Respiratory: Negative for shortness of breath, cough, wheezing, and pleuritic chest pain, Back: Negative for injury and pain, : Negative for injury, bleeding, discharge, and swelling, MS/Extremity: Negative for injury and deformity, Neuro: Negative for headache, weakness, numbness, tingling, and seizure, Psych: Negative for depression, anxiety, suicide ideation, homicidal ideation, and hallucinations, Allergy/Immunology: Negative for hives, rash, and allergies, Endocrine: Negative for neck swelling, polydipsia, polyuria, polyphagia, and marked weight changes, Hematologic/Lymphatic: Negative for swollen nodes, abnormal bleeding, and unusual bruising. 22:14 Abdomen/GI: Positive for abdominal pain, nausea and vomiting, of the epigastric area, right upper quadrant and left upper quadrant. Exam: 22:14 Constitutional: This is a well developed, well nourished patient who is awake, alert, yousuf and in no acute distress. Head/Face: Normocephalic, atraumatic. Eyes: Pupils equal round and reactive to light, extra-ocular motions intact. Lids and lashes normal. Conjunctiva and sclera are non-icteric and not injected. Cornea within normal limits. Periorbital areas with no swelling, redness, or edema. ENT: Nares patent. No nasal discharge, no septal abnormalities noted. Tympanic membranes are normal and external auditory canals are clear. Oropharynx with no redness, swelling, or masses, exudates, or evidence of obstruction, uvula midline. Mucous membranes moist. Neck: Trachea midline, no thyromegaly or masses palpated, and no cervical lymphadenopathy. Supple, full range of motion without nuchal rigidity, or vertebral point tenderness. No Meningismus. Chest/axilla: Normal chest wall appearance and motion. Nontender with no deformity. No lesions are appreciated. Cardiovascular: Regular rate and rhythm with a normal S1 and S2. No gallops, murmurs, or rubs. Normal PMI, no JVD. No pulse deficits. Respiratory: Lungs have equal breath sounds bilaterally, clear to auscultation and percussion. No rales, rhonchi or wheezes noted. No increased work of breathing, no retractions or nasal flaring. Back: No spinal tenderness. No costovertebral tenderness. Full range of motion. Male : Normal genitalia with no discharge or lesions. Skin: Warm, dry with normal turgor. Normal color with no rashes, no lesions, and no evidence of cellulitis. MS/ Extremity: Pulses equal, no cyanosis. Neurovascular intact. Full, normal range of motion. Neuro: Awake and alert, GCS 15, oriented to person, place, time, and situation. Cranial nerves II-XII grossly intact. Motor strength 5/5 in all extremities. Sensory grossly intact. Cerebellar exam normal. Normal gait. Psych: Awake, alert, with orientation to person, place and time. Behavior, mood, and affect are within normal limits. 22:14 Abdomen/GI: Inspection: abdomen appears normal, Bowel sounds: normal, active, all quadrants, Palpation: mild abdominal tenderness, in the epigastric area, Liver: no appreciated palpable abnormalities, Hernia: not appreciated. 23:16 ECG was reviewed by the Attending Physician. yousuf Vital Signs: 21:26 BP 177 / 101; Pulse 79; Resp 16 S; Temp 98.1(O); Pulse Ox 99% on R/A; Weight 88.45 kg bb (R); Height 6 ft. 1 in. (185.42 cm) (R); Pain 10/10; 22:00 BP 168 / 131; Pulse 61; Resp 18; Pulse Ox 99% ; jm8 23:00 BP 197 / 109; Pulse 67; Resp 18; Pulse Ox 95% ; jm8 02/22 00:55 BP 187 / 100; Pulse 69; Resp 18; Pulse Ox 96% on R/A; mg2 01:26 BP 202 / 99; Pulse 95; Resp 18; Pulse Ox 100% on R/A; mg2 01:54 BP 196 / 88; Pulse 105; Resp 18; Pulse Ox 98% on R/A; mg2 02/21 21:26 Body Mass Index 25.73 (88.45 kg, 185.42 cm) MDM: 02/21 21:49 Patient medically screened. [facility] 22:16 Differential diagnosis: gastritis, varices, gastritis, gastroesophageal reflux disease, yousuf GI Bleed, Hepatitis, non-specific abd pain, pancreatitis, Peptic Ulcer Disease, urinary tract infection. Data reviewed: vital signs, nurses notes, lab test result(s), EKG, radiologic studies, plain films. Data interpreted: media monitor: rate is 79 beats/min, rhythm is regular, Pulse oximetry: on room air is 99 %. Test interpretation: by ED physician or midlevel provider: ECG, plain radiologic studies. Counseling: I had a detailed discussion with the patient and/or guardian regarding: the historical points, exam findings, and any diagnostic results supporting the discharge/admit diagnosis, lab results, radiology results, the need for further work-up and treatment in the hospital. 02/21 21:45 Order name: Basic Metabolic Panel; Complete Time: 23:30 mg2 02/21 21:45 Order name: CBC with Diff; Complete Time: 23:19 mg2 02/21 21:45 Order name: Hepatic Function; Complete Time: 23:30 mg2 02/21 21:45 Order name: Lipase; Complete Time: 23:30 mg2 02/21 21:45 Order name: TS mg2 02/21 21:51 Order name: PT-INR; Complete Time: 23:19 yousuf 02/21 23:00 Order name: Glucose, Ancillary Testing; Complete Time: 23:19 EDMS 02/21 23:02 Order name: Troponin (Emerg Dept Use Only); Complete Time: 23:30 EDMS 02/21 23:02 Order name: NT PRO-BNP; Complete Time: 23:30 EDMS 02/21 23:02 Order name: Magnesium; Complete Time: 23:30 EDMS 02/21 23:35 Order name: SARS-COV-2 RT PCR; Complete Time: 01:09 EDMS 02/22 04:39 [place] name: [place] [facility] [place] 04:39 [place] name: [place]ematocrit [facility] [place]/22 06:02 Order name: Hemoglobin EDAL 02/22 06:02 Order name: Hematocrit EDAL 02/22 07:08 Order name: CBC with Automated Diff EDMS 02/22 07:19 Order name: Comprehensive Metabolic Panel EDAL 02/22 07:19 Order name: Phosphorus EDAL 02/22 07:19 Order name: Magnesium EDAL 02/22 15:46 Order name: Urinalysis EDAL 02/22 15:51 Order name: Urine Drug Screen EDAL 02/22 16:02 Order name: Urine Microscopic Only EDMS 02/22 21:45 Order name: Hemoglobin 02/22 21:45 Order name: Hematocrit 02/22 22:11 Order name: Hemoglobin EDAL 02/22 22:11 Order name: Hematocrit EDAL 02/21 21:45 Order name: IV Saline Lock; Complete Time: 21:51 mg2 02/21 21:45 Order name: Labs collected and sent; Complete Time: 21:51 mg2 02/21 21:51 Order name: XRAY Chest (1 view) [facility] 02/21 21:51 Order name: EKG; Complete Time: 21:52 yousuf 02/21 21:51 Order name: Cardiac monitoring; Complete Time: 22:10 yousuf 02/21 21:51 Order name: EKG - Nurse/Tech; Complete Time: 23:31 yousuf 02/21 21:51 Order name: O2 Per Protocol; Complete Time: 22:10 [facility] 02/21 21:51 Order name: O2 Sat Monitoring; Complete Time: 22:10 [facility] 02/22 00:41 Order name: CONS Physician Consult [facility] 02/22 08:53 Order name: [facility] EC:16 Rate is 67 beats/min. Rhythm is regular. QRS Davey is Normal. PA interval is normal. QRS yousuf interval is normal. QT interval is normal. No Q waves. T waves are Normal. No ST changes noted. Clinical impression: NSR w/ Non-specific ST/T Changes and No evidence of ischemia. Interpreted by me. Reviewed by me. Administered Medications: 22:49 Drug: ProTONIX 80 mg Route: IVP; Site: left antecubital; mg2 02/22 00:55 Follow up: Response: No adverse reaction mg2 02/21 22:49 Drug: ProTONIX 8 mg/hr Route: IV; Rate: 25 ml/hr; Site: left antecubital; mg2 02/22 00:55 Follow up: IV Status: Infusion continued upon admission mg2 02/21 22:49 Drug: Zofran (Ondansetron) 8 mg Route: IVP; Site: left antecubital; mg2 02/22 00:54 Follow up: Response: No adverse reaction mg2 00:24 Drug: hydrALAZINE 10 mg Route: IV; Rate: bolus; Site: left upper arm; jm8 00:54 Follow up: Response: No adverse reaction; Blood pressure is lowered; IV Status: mg2 Completed infusion 01:26 Drug: cloNIDine 0.1 mg Route: PO; mg2 02:41 Follow up: Response: No adverse reaction mg2 Disposition: 02/21/21 23:37 Hospitalization ordered by Lex Chavez for Inpatient Admission. Preliminary diagnosis are Gastrointestinal hemorrhage, unspecified - upper, Vomiting, Vazquez's esophagus, Essential (primary) hypertension. - Bed requested for Telemetry/MedSurg (Inpatient). - Status is Inpatient Admission. iw - Condition is Stable. - Problem is new. - Symptoms have improved. Signatures: Dispatcher [employer] [facility] Hakeem Elliott MD MD cha Ballard, Brenda RN RN bb Loulou Salcido RN RN iw Fernanda Tapia RN RN tl1 Saundra Stephens RN RN Adi Alves RN RN mg2 Sylvain Hernandez RN RN jm8 Corrections: (The following items were deleted from the chart) 02/21 22:53 22:16 CORONAVIRUS+MR.LAB.BRZ ordered. [facility] EDAL : 21:52 MAGNESIUM+C.LAB.BRZ ordered. [facility] 23: 21:52 PROBNP+C.LAB.BRZ ordered. [facility] : 21:52 TROPONIN (EMERG DEPT USE ONLY)+C.LAB.BRZ ordered. [facility] 02/22 02:00 02/21 23:37 Hospitalization Ordered by Lex Chavez MD for Inpatient Admission. Preliminary diagnosis is Gastrointestinal hemorrhage, unspecified - upper; Vomiting; Vazquez's esophagus; Essential (primary) hypertension. Bed requested for Telemetry/MedSurg (Inpatient). Status is Inpatient Admission. Condition is Stable. Problem is new. Symptoms have improved. [facility] 02/22 02:32 02:00 02/21/2021 23:37 Hospitalization Ordered by Lex Chavez MD for Inpatient cg Admission. Preliminary diagnosis is Gastrointestinal hemorrhage, unspecified - upper; Vomiting; Vazquez's esophagus; Essential (primary) hypertension. Bed requested for [facility] ER HOLD. Status is Inpatient Admission. Condition is Stable. Problem is new. Symptoms have improved. 02:37 02:32 02/21/2021 23:37 Hospitalization Ordered by Lex Chavez MD for Inpatient cg Admission. Preliminary diagnosis is Gastrointestinal hemorrhage, unspecified - upper; Vomiting; Vazquez's esophagus; Essential (primary) hypertension. Bed requested for [facility] ER HOLD. Status is Inpatient Admission. Condition is Stable. Problem is new. Symptoms have improved. 21:03 02:37 02/21/2021 23:37 Hospitalization Ordered by Lex Chavez MD for Inpatient tl1 Admission. Preliminary diagnosis is Gastrointestinal hemorrhage, unspecified - upper; Vomiting; Vazquez's esophagus; Essential (primary) hypertension. Bed requested for [facility] ER HOLD. Status is Inpatient Admission. Condition is Stable. Problem is new. Symptoms have improved. 22:25 21:03 02/21/2021 23:37 Hospitalization Ordered by Lex Chavez MD for Inpatient iw Admission. Preliminary diagnosis is Gastrointestinal hemorrhage, unspecified - upper; Vomiting; Vazquez's esophagus; Essential (primary) hypertension. Bed requested for Telemetry/MedSurg (Inpatient). Status is Inpatient Admission. Condition is Stable. Problem is new. Symptoms have improved. tl1
--- NOTE | 2021-02-21 23:38 | ER ---
Nurse's Notes [facility] Name: Jake Diana Age: 50 yrs Sex: Male : 1970 Arrival Date: 02/21/2021 Time: 19:52 Bed 27 Private MD: Diagnosis: Gastrointestinal hemorrhage, unspecified-upper;Vomiting;Vazquez's esophagus;Essential (primary) hypertension Presentation: 02/21 21:26 Chief complaint: Patient states: he is having abdominal pain and vomiting blood x 2 bb days states he has a history of varicies. Coronavirus screen: At this time, the client does not indicate any symptoms associated with coronavirus-19. Ebola Screen: No symptoms or risks identified at this time. Initial Sepsis Screen: Does the patient meet any 2 criteria? No. Patient's initial sepsis screen is negative. Does the patient have a suspected source of infection? No. Patient's initial sepsis screen is negative. Risk Assessment: Do you want to hurt yourself or someone else? Patient reports no desire to harm self or others. Onset of symptoms was February 19, 2021. 21:26 Method Of Arrival: Ambulatory bb 21:26 Acuity: CHRISTIAN 3 bb Triage Assessment: 21:28 General: Appears in no apparent distress. Behavior is anxious, flat, listless. Pain: bb Complains of pain in abdomen Pain currently is 10 out of 10 on a pain scale. Neuro: Level of Consciousness is listless. Respiratory: Respiratory effort is even, unlabored, Respiratory pattern is regular. GI: Reports lower abdominal pain, upper abdominal pain, vomiting. Derm: Skin is pink, warm \T\ dry. Musculoskeletal: Circulation, motion, and sensation intact. 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 - Social history:: Smoking status: unknown. - Family history:: not pertinent. Screenin:50 Abuse screen: Denies threats or abuse. Denies injuries from another. Nutritional mg2 screening: No deficits noted. Tuberculosis screening: No symptoms or risk factors identified. Fall Risk IV access (20 points). Assessment: 22:49 General: Appears in no apparent distress. comfortable, Behavior is quiet. Pain: mg2 Complains of pain in abdomen. Neuro: Level of Consciousness is awake, lethargic. Cardiovascular: Capillary refill < 3 seconds Patient's skin is warm and dry. Respiratory: Airway is patent Respiratory effort is even, unlabored, Respiratory pattern is regular, symmetrical. GI: Reports vomiting. : No signs and/or symptoms were reported regarding the genitourinary system. EENT: No signs and/or symptoms were reported regarding the EENT system. Derm: Skin is intact, is healthy with good turgor, Skin is normal. Musculoskeletal: Circulation, motion, and sensation intact. Capillary refill < 3 seconds. 02/22 00:55 Reassessment: Dexter-hospitalist came and assessed the patient. admission advised. mg2 Vital Signs: 02/21 21:26 BP 177 / 101; Pulse 79; Resp 16 S; Temp 98.1(O); Pulse Ox 99% on R/A; Weight 88.45 kg bb (R); Height 6 ft. 1 in. (185.42 cm) (R); Pain 10/10; 22:00 BP 168 / 131; Pulse 61; Resp 18; Pulse Ox 99% ; jm8 23:00 BP 197 / 109; Pulse 67; Resp 18; Pulse Ox 95% ; jm8 02/22 00:55 BP 187 / 100; Pulse 69; Resp 18; Pulse Ox 96% on R/A; mg2 01:26 BP 202 / 99; Pulse 95; Resp 18; Pulse Ox 100% on R/A; mg2 01:54 BP 196 / 88; Pulse 105; Resp 18; Pulse Ox 98% on R/A; mg2 02/21 21:26 Body Mass Index 25.73 (88.45 kg, 185.42 cm) ED Course: 02/21 19:52 Patient arrived in ED. cl3 21:27 Triage completed. bb 21:28 Arm band placed on Patient placed in an exam room, on a stretcher, on pulse oximetry. bb 21:45 Adi Alves, FERNANDO is Primary Nurse. mg2 21:49 Hakeem Elliott MD is Attending Physician. [facility] 22:50 No provider procedures requiring assistance completed. Inserted saline lock: 22 gauge mg2 in right upper arm, using aseptic technique. Blood collected. 22:51 Patient has correct armband on for positive identification. mg2 23:32 Lex Chavez MD is Hospitalizing Provider. [facility] 02/22 00:01 XRAY Chest (1 view) In Process Unspecified. EDMS 02:00 Patient admitted, IV remains in place. mg2 Administered Medications: 02/21 22:49 Drug: ProTONIX 80 mg Route: IVP; Site: left antecubital; mg2 02/22 00:55 Follow up: Response: No adverse reaction mg2 02/21 22:49 Drug: ProTONIX 8 mg/hr Route: IV; Rate: 25 ml/hr; Site: left antecubital; mg2 02/22 00:55 Follow up: IV Status: Infusion continued upon admission mg2 02/21 22:49 Drug: Zofran (Ondansetron) 8 mg Route: IVP; Site: left antecubital; mg2 02/22 00:54 Follow up: Response: No adverse reaction mg2 00:24 Drug: hydrALAZINE 10 mg Route: IV; Rate: bolus; Site: left upper arm; jm8 00:54 Follow up: Response: No adverse reaction; Blood pressure is lowered; IV Status: mg2 Completed infusion 01:26 Drug: cloNIDine 0.1 mg Route: PO; mg2 02:41 Follow up: Response: No adverse reaction mg2 Outcome: 02/21 23:37 Decision to Hospitalize by Provider. [facility] 02/22 02:00 Admitted to ER Hold. Please see [facility] for further documentation. mg2 Condition: stable Instructed on the need for admit, Demonstrated understanding of instructions. 22:25 Patient left the ED. iw Signatures: Dispatcher [employer] Hakeem Baker MD MD cha Ballard, Brenda, RN RN bb Williams, Irene, RN RN iw Adi Alves RN RN mg2 Yari Easley cl3 Sylvain Hernandez RN RN [email or web address] Corrections: (The following items were deleted from the chart) 02/21 23:26 22:00 BP 197 / 109; Pulse 67bpm; Resp 18bpm; Pulse Ox 95%; jm8 [email or web address]
[2021-02-22] MEDS ORDERED: HYDRALAZINE HCL 20 MG/ML VIAL ONE ×2 (00:42→01:37)
[2021-02-22] MEDS ORDERED: PANTOPRAZOLE 40 MG INJ ONE (01:37)
[2021-02-22] MEDS ORDERED: NA CHLORIDE 0.9% 250 ML ONE (01:37)
[2021-02-22] MEDS ORDERED: NA CHLORIDE 0.9% 1,000 ML ONE ×2 (01:37→14:05)
[2021-02-22] MEDS ORDERED: cloNIDine HCL 0.1 MG TAB ONE (01:43)
[2021-02-22] MEDS: NA CHLORIDE 0.9% 1,000 ML IV SCH ×2 (02:00→19:27)
--- NOTE | 2021-02-22 05:46 | P.HP ---
Certification for Inpatient Patient admitted to: Inpatient With expected LOS: >2 Midnights Patient will require the following post-hospital care: None Practitioner: I am a practitioner with admitting privileges, knowledge of patient current condition, hospital course, and medical plan of care. Services: Services provided to patient in accordance with Admission requirements found in Title 42 Section 412.3 of the Code of Federal Regulations <Dexter Garcia - Last Filed: 02/22/21 05:43> Patient History Date of Service: 02/22/21 Reason for admission: UGIB History of Present Illness: Mr. Diana is a 50 yo male with Vazquez's esophagus and HTN here today for two days of coughing up blood and 8/10 abdominal pain. He had 1 episode of coffee ground emesis in the ER. He reports nausea, vomiting, night sweats, and chills. Hemodynamically stable. - Past Medical/Surgical History Diabetic: No -: Vazquez's Esophagitis -: Hypertension -: EGD/COLONOSCOPY - Family History Father -: Hypertension Mother -: Hypertension - Social History Alcohol use: No CD- Drugs: No Caffeine use: Yes Place of Residence: Home <Dexter Garcia - Last Filed: 02/22/21 05:43> Date of Service: 02/22/21 <michelle bar - Last Filed: 02/22/21 17:58> Allergies No Known Allergies Allergy (Verified 03/07/14 07:09) Home Medications: Pantoprazole [Protonix Tab] 40 mg PO BID #60 tab 03/31/20 Review of Systems General: Chills, Sweats, As per HPI Eyes: Unremarkable ENT: Unremarkable Respiratory: Unremarkable Cardiovascular: Unremarkable Gastrointestinal: Nausea, Vomiting, Hematochezia, As per HPI Genitourinary: Unremarkable Musculoskeletal: Unremarkable Integumentary: Unremarkable Neurological: Unremarkable Lymphatics: Unremarkable <Dexter Garcia - Last Filed: 02/22/21 05:43> Physical Examination - Physical Exam General: In no apparent distress HEENT: Atraumatic, Normocephalic, PERRLA, Mucous membr. moist/pink, EOMI, Sclerae nonicteric Neck: Supple, 2+ carotid pulse no bruit, JVD not distended, No Thyromegaly, No LAD Respiratory: Clear to auscultation bilaterally, Normal air movement Cardiovascular: No edema, Normal pulses, Regular rate/rhythm, Normal S1 S2, No gallops, No rubs, No murmurs Capillary refill: <2 Seconds Gastrointestinal: Normal bowel sounds, Soft and benign, Non-distended, No ascites, No tenderness, No masses, No rebound, No guarding Musculoskeletal: No clubbing, No swelling, No contractures, No erythema, No tenderness, No warmth Integumentary: No rashes, No breakdown, No significant lesion, No tenderness/swelling, No erythema, No warmth, No cyanosis Neurological: Normal strength at 5/5 x4 extr, Normal tone, Sensation intact, Cranial nerves 3-12 intact Lymphatics: No axilla or inguinal lymphadenopathy - Studies Laboratory Data (last 24 hrs) 02/21/21 22:30: WBC 9.60, Hgb 14.1, Hct 43.4, Plt Count 206 02/21/21 21:50: PT 12.1, INR 1.05 02/21/21 21:50: Magnesium Cancelled 02/21/21 21:50: Sodium 136, Potassium 3.7, BUN 10, Creatinine 0.81, Glucose 110 H, Magnesium 2.0, Total Bilirubin 0.4, AST 33, ALT 45, Alkaline Phosphatase 93, Lipase 51 L <Dexter Garcia - Last Filed: 02/22/21 05:43> - Studies Laboratory Data (last 24 hrs) 02/21/21 22:30: WBC 9.60, Hgb 14.1, Hct 43.4, Plt Count 206 02/21/21 21:50: PT 12.1, INR 1.05 02/21/21 21:50: Magnesium Cancelled 02/21/21 21:50: Sodium 136, Potassium 3.7, BUN 10, Creatinine 0.81, Glucose 110 H, Magnesium 2.0, Total Bilirubin 0.4, AST 33, ALT 45, Alkaline Phosphatase 93, Lipase 51 L <michelle bar - Last Filed: 02/22/21 17:58> Assessment and Plan - Plan Assessment Vazquez's esophagus HTN UGIB Plan GI consulted Protonix drip trend H/H continue with pain control NPO on telemetry continue IVF SCDs for DVT ppx monitor and control BP abdominal ultrasound pending Discharge Plan: Home Plan to discharge in: 48 Hours - Advance Directives Does patient have a Living Will: No Does patient have a Durable POA for Healthcare: No - Code Status/Comfort Care Code Status Assessed: Yes (full code) Critical Care: No Time Spent Managing Pts Care (In Minutes): 70 <Dexter Garcia - Last Filed: 02/22/21 05:43> Physician Review: Patient Assessed, Agree with Above Assessment and Plan Physician Review Additional Text: History of Vazquez's esophagus. Upper GI bleed. Plan: IV Protonix drip. Monitor H&H. GI consult. Transfuse PRBC p.r.n. for hemoglobin less than 7. <michelle bar - Last Filed: 02/22/21 17:58>
[2021-02-22 06:00] LABS: Hematocrit 39.6 % (39.6-49.0)
[2021-02-22] MEDS ORDERED: ONDANSETRON 4 MG/2 ML VIAL IV PRN (06:07)
[2021-02-22] MEDS: PANTOPRAZOLE IV SCH ×2 (06:07→10:21)
[2021-02-22] MEDS ORDERED: HYDRALAZINE HCL 20 MG/ML VIAL IV PRN (06:07)
[2021-02-22] MEDS ORDERED: MORPHINE 2 MG/ML SYR IV PRN (06:07)
[2021-02-22] MEDS: NA CHLORIDE 0.9% IV SCH ×2 (06:07→10:21)
[2021-02-22] MEDS ORDERED: ACETAMINOPHEN 500 MG TAB PO PRN (06:07)
[2021-02-22 06:10] VITALS: BMI 25.7
[2021-02-22 07:03] LABS: Absolute Lymphocytes (CBC) 1.2 K/uL (0.7-4.9); Basophils % 0.6 % (0-1.3); Hematocrit 40.2 % (39.6-49.0); Lymphocytes % 15.5 % (15.3-44.8); RBC Red Blood Cell Count 4.89 M/uL (4.33-5.43)
[2021-02-22 07:14] LABS: ALT/SGPT 39 U/L (12-78); AST/SGOT 29 U/L (15-37); Albumin 3.3 g/dL (3.4-5.0); Alkaline Phosphatase 81 U/L (45-117); BUN Blood Urea Nitrogen 11 mg/dL (7-18); Bicarbonate 25 mmol/L (21-32); Bilirubin Total 0.4 mg/dL (0.2-1.0); Glucose Level 103 mg/dL (74-106); Phosphorus 3.1 mg/dL (2.5-4.9); Potassium 3.5 mmol/L (3.5-5.1); Protein, Total 7.2 g/dL (6.4-8.2); Sodium Level 137 mmol/L (136-145)
--- NOTE | 2021-02-22 08:38 | RAD REPORT ---
EXAM DESCRIPTION: RAD - Chest Single View - 02/22/2021 12:00 am CLINICAL HISTORY: COUGH Chest pain. COMPARISON: Chest Single View dated 02/10/2016; CHEST SINGLE VIEW dated 08/27/2015; CHEST SINGLE VIEW dated 08/26/2015; CHEST SINGLE VIEW dated 04/23/2014 FINDINGS: Portable technique limits examination quality. The lungs are underinflated resulting in vascular crowding. The heart is normal in size. No displaced fractures. IMPRESSION: Underinflated lungs.
--- NOTE | 2021-02-22 08:53 | RAD REPORT ---
EXAM DESCRIPTION: US - Abdomen Exam Complete - 02/22/2021 7:24 am CLINICAL HISTORY: Abdominal pain. abdominal pain COMPARISON: Abdomen Exam Complete dated 03/28/2020 FINDINGS: Mild diffuse fatty liver. No focal liver lesions or intrahepatic biliary dilatation is see n. The gallbladder demonstrates no gallstones, pericholecystic fluid or gallbladder wall thickening. Co mmon bile duct is normal in caliber measuring 4 mm. Both kidneys are normal in size, shape and echotexture. No hydronephrosis, focal lesion of concern or perinephric fluid. The spleen is normal in size measuring 10 cm. The pancreas and aorta are obscured by bowel gas. The visualized aspects of the IVC are grossly normal. IMPRESSION: Mild diffuse fatty liver.
[2021-02-22 15:42] LABS: Urine Appearance CLEAR (Clear); Urine Bilirubin NEGATIVE (Negative); Urine Blood NEGATIVE (Negative); Urine Color YELLOW (Yellow); Urine Glucose NEGATIVE (Negative); Urine Protein TRACE (Negative); Urine Specific Gravity >=1.030 (1.005-1.030)
[2021-02-22 15:46] LABS: Urine Microscopic Reflex ORDER UMIC
[2021-02-22 15:49] LABS: Benzodiazepines POSITIVE (NEGATIVE); Cocaine NEGATIVE (NEGATIVE); Phencyclidine NEGATIVE (NEGATIVE)
[2021-02-22 15:50] LABS: Barbiturates NEGATIVE (NEGATIVE); METHAMPHETAM POSITIVE (NEGATIVE); Methadone NEGATIVE (NEGATIVE); Opiates NEGATIVE (NEGATIVE); THC Cannibis POSITIVE (NEGATIVE)
[2021-02-22 16:01] LABS: Urine Bacteria <20 /HPF (NONE SEEN); Urine RBC <5 /HPF (NONE SEEN)
--- NOTE | 2021-02-22 16:10 | EKG ---
Test Date: 2021-02-21 Test Time: 23:11:51 [employer] Operator: FERNANDO MEASUREMENT RESULTS: Intervals: Rate: 67 CO: 156 QRSD: 112 QT: 410 QTc: 433 [place]: P: 59 CO: 156 QRS: 64 T: 39 INTERPRETIVE STATEMENTS: Sinus rhythm with marked sinus arrhythmia Otherwise normal ECG Compared to ECG 03/28/2020 13:04:25 Sinus bradycardia no longer present Electronically Signed On 02-22-21 16:07:00 CDT by Juan Carlos Mcneill
--- NOTE | 2021-02-22 17:59 | P.PN ---
Date of Service: 02/22/21 No coffee-ground emesis since admission. Patient reports improvement in abdominal pain. Plan: Continue protonix drip Monitor H&H q.6 hrs. Transfuse p.r.n. for hemoglobin less than 7. Awaiting GI evaluation.
[2021-02-22] MEDS: PANTOPRAZOLE INJ 80 MG in NA CHLORIDE 0.9% 250 ML IV SCH (21:25)
[2021-02-22 22:10] LABS: Hematocrit 41.2 % (39.6-49.0)
[2021-02-23 01:18] LABS: Hematocrit 40.2 % (39.6-49.0)
[2021-02-23] MEDS: PANTOPRAZOLE INJ 80 MG in NA CHLORIDE 0.9% 250 ML IV SCH (02:00)
[2021-02-23 06:45] LABS: Absolute Lymphocytes (CBC) 1.3 K/uL (0.7-4.9); Basophils % 0.6 % (0-1.3); Lymphocytes % 19.8 % (15.3-44.8); MPV 8.5 fL (7.6-11.3); RBC Red Blood Cell Count 4.73 M/uL (4.33-5.43)
[2021-02-23 07:18] LABS: Bilirubin Total 0.5 mg/dL (0.2-1.0); Magnesium 2.1 mg/dL (1.8-2.4); Phosphorus 2.8 mg/dL (2.5-4.9); Potassium 3.7 mmol/L (3.5-5.1); Protein, Total 6.9 g/dL (6.4-8.2)
[2021-02-23] MEDS ORDERED: POTASSIUM CL SA 10 MEQ TAB PO ONE (08:23)
[2021-02-23] MEDS: NA CHLORIDE 0.9% 1,000 ML IV SCH (08:47)
[2021-02-23 08:48] VITALS: BP 137/84; TEMP 98.4
[2021-02-23 11:05] LABS: Hematocrit 41.2 % (39.6-49.0)
[2021-02-23 11:44] VITALS: O2SAT 97
--- NOTE | 2021-02-23 12:57 | P.DS ---
Admission Date: 02/22/21 Discharge Date: 02/23/21 Disposition: AMA-LEFT AGAINST MEDICAL ADVIC Discharge Condition: FAIR Reason for Admission: UGIB Consultations: GI-Dr. Kaiser. - Problems (1) Vazquez's esophagus Status: Acute (2) Upper gastrointestinal hemorrhage Onset Date: 02/13/16 Status: Acute Brief History of Present Illness: 50-year-old male with a history of Vazquez esophagus presented to the emergency department with a 2 day history hematemesis and abdominal pain. Patient had an episode coffee-ground emesis in the ED. Workup in the ED was unremarkable. Patient was admitted for further management. Hospital Course: Patient started on protonix drip. H&H monitored was relatively stable. Patient did not have any further episode of hematemesis. He was seen by GI who recommended endoscopy. Patient initially decided to sign out against medical advice last night. I convinced him to stay for the endoscopy to be done today. Patient stayed overnight and was taking to the endoscopy suite. I was told he wouldn't await any further for the endoscopy. He was brought back to the floor where he signed out against medical advice. Vital Signs/Physical Exam: Temp Pulse Resp BP Pulse Ox 98.4 F 94 H 17 137/84 97 02/23/21 08:00 02/23/21 08:00 02/23/21 08:00 02/23/21 08:00 02/23/21 08:00 Laboratory Data at Discharge: WBC 6.60 K/uL (4.3-10.9) D 02/23/21 06:21 Hgb Cancelled 02/23/21 21:00 Hct Cancelled 02/23/21 21:00 Plt Count 200 K/uL (152-406) 02/23/21 06:21 PT 12.1 SECONDS (9.5-12.5) 02/21/21 21:50 INR 1.05 02/21/21 21:50 Sodium 138 mmol/L (136-145) 02/23/21 06:21 Potassium 3.7 mmol/L (3.5-5.1) 02/23/21 06:21 BUN 17 mg/dL (7-18) 02/23/21 06:21 Creatinine 0.94 mg/dL (0.55-1.3) 02/23/21 06:21 Glucose 85 mg/dL (74-106) 02/23/21 06:21 Phosphorus 2.8 mg/dL (2.5-4.9) 02/23/21 06:21 Magnesium 2.1 mg/dL (1.8-2.4) 02/23/21 06:21 Total Bilirubin 0.5 mg/dL (0.2-1.0) 02/23/21 06:21 AST 21 U/L (15-37) 02/23/21 06:21 ALT 33 U/L (12-78) 02/23/21 06:21 Alkaline Phosphatase 76 U/L (45-117) 02/23/21 06:21 Lipase 51 U/L (73-393) L 02/21/21 21:50 Home Medications: Pantoprazole [Protonix Tab] 40 mg PO BID #60 tab 03/31/20 Followup: Unknown,U [Primary Care Provider] -
== END 2021-02-23 11:50 | disposition left against medical advice (07) | DRG 382 ==
LOC: ER 19:50 → ERHOLD 02-22 00:56 → 4TH 02-22 21:48
PROVIDERS: ADMIT Internal Medicine; ATTEND Internal Medicine
DX: K22.70 Barrett's esophagus without dysplasia (principal); I10 Essential (primary) hypertension; K92.2 Gastrointestinal hemorrhage, unspecified; Z53.29 Procedure and treatment not carried out because of patient's decision for other reasons; Z79.899 Other long term (current) drug therapy; Z20.822 Contact with and (suspected) exposure to COVID-19
CPT/HCPCS: 36415; 71045; 76700; 80048; 80053; 80076; 80307; 81003; 81015; 82947; 83690; 83735; 83880; 84100; 84484; 85014; 85018; 85025; 85610; 86850; 86900; 86901; 93005; 94760; 99285; C9113; J0360; J2405; J7030; J7050; U0003

== ENCOUNTER 2022-11-13 02:58 | Emergency (ER) | payer SELFPAY ==
[2022-11-13] MEDS ORDERED: ONDANSETRON 4 MG/2 ML VIAL ONE (03:22)
[2022-11-13] MEDS ORDERED: NA CHLORIDE 0.9% 1,000 ML ONE (03:22)
[2022-11-13] MEDS ORDERED: PANTOPRAZOLE 40 MG INJ ONE (03:22)
[2022-11-13] MEDS ORDERED: PROMETHAZINE INJ 25 MG/ML AMP ONE ×2 (04:00→06:31)
[2022-11-13 04:12] LABS: Absolute Lymphocytes (CBC) 0.8 K/uL (0.7-4.9); Hematocrit 50.6 % (39.6-49.0); Lymphocytes % 8.5 % (15.3-44.8); MCV 86.2 fL (80-100); MPV 8.2 fL (7.6-11.3); RBC Red Blood Cell Count 5.87 M/uL (4.33-5.43)
[2022-11-13 04:21] LABS: Protime INR 1.05
[2022-11-13 04:25] LABS: Albumin 4.1 g/dL (3.4-5.0); Bilirubin Total 0.5 mg/dL (0.2-1.0); Potassium 3.5 mmol/L (3.5-5.1); Protein, Total 9.6 g/dL (6.4-8.2)
[2022-11-13 04:31] LABS: SARS-CoV-2 Antigen Rapid Res Negative (Negative)
[2022-11-13] MEDS ORDERED: OCTREOTIDE ACETATE 100 MCG/ML ONE (05:59)
[2022-11-13] MEDS ORDERED: LABETALOL 20 MG/4ML SYRINGE IV ONE (05:59)
--- NOTE | 2022-11-13 06:03 | EDPHYS ---
Physician Documentation [facility] Name: Jake Diana Age: 51 yrs Sex: Male : 1970 Arrival Date: 11/13/2022 Time: 03:11 Bed 3 Private MD: CORINNE Physician Dandre Cantrell HPI: 11/13 03:46 This 51 yrs old Male presents to ER via EMS with complaints of vomiting blood. rt 03:46 The patient presents to the emergency department with nausea, vomiting. Onset: The rt symptoms/episode began/occurred 1 day(s) ago. The symptoms are aggravated by nothing. The symptoms are alleviated by nothing. Associated signs and symptoms: Pertinent positives: dizziness. Severity of symptoms: At their worst the symptoms were moderate. The patient has experienced similar episodes in the past. Presents to the ED with 2 days of nausea, vomiting. The patient states that he has been vomiting blood, red mixed in with his vomitus. Denies melena, hematochezia. Reports epigastric pain to his abdomen. States that the symptoms have remained persistent. He reports a dizziness. Denies other acute complaints at this time. Symptoms are moderate severity, no other aggravating or alleviating factors. Patient states that he does have a history of esophageal varices as well as Vazquez's esophagus.. Historical: - Allergies: 03:15 No Known Allergies; as6 - PMHx: 03:15 Hypertension; Vazquez's Esophagus; as6 - Immunization history:: Client reports having NOT received the Covid vaccine. - Social history:: Smoking status: Patient reports the use of cigarette tobacco products, smokes one pack cigarettes per day. - Family history:: not pertinent. ROS: 03:46 Constitutional: Negative for fever, chills, and weight loss, Eyes: Negative for injury, rt pain, redness, and discharge, ENT: Negative for injury, pain, and discharge, Neck: Negative for injury, pain, and swelling, Cardiovascular: Negative for chest pain, palpitations, and edema, Respiratory: Negative for shortness of breath, cough, wheezing, and pleuritic chest pain, MS/Extremity: Negative for injury and deformity, Skin: Negative for injury, rash, and discoloration, Neuro: Negative for headache, weakness, numbness, tingling, and seizure, Psych: Negative for depression, anxiety, suicide ideation, homicidal ideation, and hallucinations. 03:46 Abdomen/GI: Positive for nausea and vomiting, hematemesis. Exam: 03:46 Constitutional: This is a well developed, well nourished patient who is awake, alert, rt and in no acute distress. Head/Face: Normocephalic, atraumatic. Eyes: Pupils equal round and reactive to light, extra-ocular motions intact. Lids and lashes normal. Conjunctiva and sclera are non-icteric and not injected. Cornea within normal limits. Periorbital areas with no swelling, redness, or edema. ENT: Nares patent. No nasal discharge, no septal abnormalities noted. Tympanic membranes are normal and external auditory canals are clear. Oropharynx with no redness, swelling, or masses, exudates, or evidence of obstruction, uvula midline. Mucous membranes moist. Neck: Trachea midline, no thyromegaly or masses palpated, and no cervical lymphadenopathy. Supple, full range of motion without nuchal rigidity, or vertebral point tenderness. No Meningismus. Chest/axilla: Normal chest wall appearance and motion. Nontender with no deformity. No lesions are appreciated. Cardiovascular: Regular rate and rhythm with a normal S1 and S2. No gallops, murmurs, or rubs. Normal PMI, no JVD. No pulse deficits. Respiratory: Lungs have equal breath sounds bilaterally, clear to auscultation and percussion. No rales, rhonchi or wheezes noted. No increased work of breathing, no retractions or nasal flaring. Skin: Warm, dry with normal turgor. Normal color with no rashes, no lesions, and no evidence of cellulitis. MS/ Extremity: Pulses equal, no cyanosis. Neurovascular intact. Full, normal range of motion. Neuro: Awake and alert, GCS 15, oriented to person, place, time, and situation. Cranial nerves II-XII grossly intact. Motor strength 5/5 in all extremities. Sensory grossly intact. Cerebellar exam normal. Normal gait. Psych: Awake, alert, with orientation to person, place and time. Behavior, mood, and affect are within normal limits. 03:46 Abdomen/GI: Mild tenderness to the epigastrium without rebound, guarding, distention.. Vital Signs: 03:12 BP 227 / 112; Pulse 61; Resp 13 S; Temp 97.7(O); Pulse Ox 98% on R/A; Weight 90.72 kg as6 (R); Height 6 ft. 4 in. (193.04 cm) (R); Pain 8/10; 04:27 BP 203 / 121; Pulse 74; Resp 20 S; Pulse Ox 98% on R/A; as6 05:30 BP 200 / 131; Pulse 74; Resp 19 S; Pulse Ox 99% on R/A; as6 06:33 BP 184 / 115; Pulse 81; Resp 19 S; Pulse Ox 96% on R/A; as6 03:12 Body Mass Index 24.34 (90.72 kg, 193.04 cm) as6 MDM: 03:15 Patient medically screened. rt 06:02 Differential diagnosis: Esophagitis, variceal bleed, ABLA. Data reviewed: vital signs, rt nurses notes, old medical records, lab test result(s). Management of patient was discussed with the following: Accepting physician. I considered the following discharge prescriptions or medication management in the emergency department Antibiotics: At this time antibiotics are not recommended, Medications were administered in the Emergency Department. See MAR. Care significantly affected by the following chronic conditions: Barrets esophagus, varix. Response to treatment: the patient's symptoms have mildly improved after treatment. 11/13 03:13 Order name: CBC with Diff; Complete Time: 04:18 rt 11/13 03:13 Order name: CMP; Complete Time: 04:37 rt 11/13 03:13 Order name: Lipase; Complete Time: 04:37 rt 11/13 03:13 Order name: Type And Screen; Complete Time: 04:59 rt 11/13 03:13 Order name: PT-INR; Complete Time: 04:37 rt 11/13 03:13 Order name: Ptt, Activated; Complete Time: 04:37 rt 11/13 04:03 Order name: SARS RAPID; Complete Time: 04:37 as6 Administered Medications: 03:56 Drug: ProTONIX (pantoprazole) 80 mg Route: IVP; Site: right antecubital; as6 06:03 Follow up: Response: No adverse reaction as6 03:56 Drug: NS 0.9% 1000 ml Route: IV; Rate: 1 bolus; Site: right antecubital; as6 06:03 Follow up: Response: No adverse reaction; IV Status: Completed infusion; IV Intake: as6 1000ml 03:56 Drug: Zofran (Ondansetron) 8 mg Route: IVP; Site: right antecubital; as6 06:03 Follow up: Response: No adverse reaction as6 04:01 Drug: Phenergan (promethazine) 12.5 mg Route: IVP; Site: right antecubital; as6 06:04 Follow up: Response: No adverse reaction as6 06:01 Drug: Octreotide 50 mcg Route: IV; Rate: calculated rate; Site: right antecubital; as6 06:35 Follow up: Response: No adverse reaction; IV Status: Completed infusion; IV Intake: [id number] 06:01 Drug: Labetalol 10 mg Route: IV; Rate: calculated rate; Site: right antecubital; as6 06:35 Follow up: Response: No adverse reaction; IV Status: Completed infusion; IV Intake: [id number] 06:33 Drug: Phenergan (promethazine) 12.5 mg Route: IVP; Site: right antecubital; as6 06:35 Follow up: Response: No adverse reaction as6 Disposition Summary: 11/13/22 06:02 Transfer Ordered Transfer Location: Other Acute Care Facility rt Reason: Higher level of care rt Condition: Fair rt Problem: an acute exacerbation rt Symptoms: have improved rt Accepting Physician: Dr Fuller(11/13/22 06:55) as6 Diagnosis - Hematemesis rt Forms: - Medication Reconciliation Form rt - SBAR form rt Critical care time excluding procedures: 06:39 Critical care time: Bedside Care: 30 minutes, Consultation: 10 minutes. Total time: 40 rt minutes Signatures: Dispatcher [employer] Herberth Esparza RN RN as6 Dandre Cantrell MD MD rt Corrections: (The following items were deleted from the chart) 06:55 06:02 Dr Fuller rt as6
--- NOTE | 2022-11-13 06:03 | ER ---
Nurse's Notes [facility] Name: Jake Diana Age: 51 yrs Sex: Male : 1970 Arrival Date: 11/13/2022 Time: 03:11 Bed 3 Private MD: Diagnosis: Hematemesis Presentation: 11/13 03:12 Chief complaint: EMS states: called out for abdominal pain, nausea, vomiting blood. pt as6 report he has been vomiting blood for about 24 hours. "I just couldn't take it anymore". Coronavirus screen: At this time, the client does not indicate any symptoms associated with coronavirus-19. Ebola Screen: No symptoms or risks identified at this time. Initial Sepsis Screen: Does the patient meet any 2 criteria? No. Patient's initial sepsis screen is negative. Does the patient have a suspected source of infection? No. Patient's initial sepsis screen is negative. Risk Assessment: Do you want to hurt yourself or someone else? Patient reports no desire to harm self or others. Onset of symptoms was November 12, 2022. 03:12 Method Of Arrival: EMS: [facility] as6 03:12 Acuity: CHRISTIAN 2 as6 Historical: - Allergies: 03:15 No Known Allergies; as6 - PMHx: 03:15 Hypertension; Vazquez's Esophagus; as6 - Immunization history:: Client reports having NOT received the Covid vaccine. - Social history:: Smoking status: Patient reports the use of cigarette tobacco products, smokes one pack cigarettes per day. - Family history:: not pertinent. Screenin:02 [facility] ED Fall Risk Assessment (Adult) Score/Fall Risk Level 0 - 2 = Low Risk. Abuse as6 screen: Denies threats or abuse. Denies injuries from another. Nutritional screening: No deficits noted. Tuberculosis screening: No symptoms or risk factors identified. Assessment: 04:03 General: Appears uncomfortable, ill, slender, Behavior is cooperative, restless. as6 General: Behavior is drowsy. Pain: Complains of pain in epigastric area Pain radiates to xiphoid area. Neuro: Level of Consciousness is obeys commands, Oriented to person, place, time, situation. Cardiovascular: Capillary refill < 3 seconds Patient's skin is warm and dry. Respiratory: Respiratory effort is even, unlabored, Respiratory pattern is regular, symmetrical. GI: Pt is actively vomiting bright red blood, Reports upper abdominal pain, epigastric pain, nausea, vomiting. 06:02 GI: Pt is actively vomiting bile, bright red blood. as6 Vital Signs: 03:12 BP 227 / 112; Pulse 61; Resp 13 S; Temp 97.7(O); Pulse Ox 98% on R/A; Weight 90.72 kg as6 (R); Height 6 ft. 4 in. (193.04 cm) (R); Pain 8/10; 04:27 BP 203 / 121; Pulse 74; Resp 20 S; Pulse Ox 98% on R/A; as6 05:30 BP 200 / 131; Pulse 74; Resp 19 S; Pulse Ox 99% on R/A; as6 06:33 BP 184 / 115; Pulse 81; Resp 19 S; Pulse Ox 96% on R/A; as6 03:12 Body Mass Index 24.34 (90.72 kg, 193.04 cm) as6 ED Course: 03:11 Patient arrived in ED. ja2 03:11 Dandre Cantrell MD is Attending Physician. rt 03:12 Herberth Nava, FERNANDO is Primary Nurse. as6 03:15 Triage completed. as6 03:16 Arm band placed on. as6 03:50 Inserted saline lock: 18 gauge in right antecubital area, using aseptic technique. as6 Blood collected. ultrasound guided. 03:56 CBC with Diff Sent. as6 03:56 CMP Sent. as6 03:56 Lipase Sent. as6 03:56 Type And Screen Sent. as6 03:56 PT-INR Sent. as6 03:56 Ptt, Activated Sent. as6 04:02 Placed in gown. Bed in low position. Call light in reach. Side rails up X2. Client as6 placed on continuous cardiac and pulse oximetry monitoring. NIBP monitoring applied. Warm blanket given. 05:01 initiated a transfer with Shahnaz Barreto from [facility]. mw2 05:11 [facility] denied due to capacity. mw2 05:12 initiated a transfer with Dot from [facility] Transfer [place]. mw2 05:15 [facility] denied due to capacity. mw2 05:17 initiated a transfer with Suly from [facility]. mw2 05:30 [facility] denied due to capacity. Suly is checking capacity at [facility]. 05:[address] Cantrell with the Doctor from [facility]. mw2 05:44 [facility] denied due to no IMU beds. mw2 05:45 initiated a transfer with Neeta from [facility] Transfer Center. mw2 05:[address] Cantrell with the Doctor from [facility]. mw2 06:10 administrative approval given by Neeta Uribe/ patient has been accepted to [facility] mw2 to the ER/ Dr. Naik accepted the patient in transfer/report to be called to [phone]. 06:33 No provider procedures requiring assistance completed. Patient transferred, IV remains as6 in place. Administered Medications: 03:56 Drug: ProTONIX (pantoprazole) 80 mg Route: IVP; Site: right antecubital; as6 06:03 Follow up: Response: No adverse reaction as6 03:56 Drug: NS 0.9% 1000 ml Route: IV; Rate: 1 bolus; Site: right antecubital; as6 06:03 Follow up: Response: No adverse reaction; IV Status: Completed infusion; IV Intake: as6 1000ml 03:56 Drug: Zofran (Ondansetron) 8 mg Route: IVP; Site: right antecubital; as6 06:03 Follow up: Response: No adverse reaction as6 04:01 Drug: Phenergan (promethazine) 12.5 mg Route: IVP; Site: right antecubital; as6 06:04 Follow up: Response: No adverse reaction as6 06:01 Drug: Octreotide 50 mcg Route: IV; Rate: calculated rate; Site: right antecubital; as6 06:35 Follow up: Response: No adverse reaction; IV Status: Completed infusion; IV Intake: [id number] 06:01 Drug: Labetalol 10 mg Route: IV; Rate: calculated rate; Site: right antecubital; as6 06:35 Follow up: Response: No adverse reaction; IV Status: Completed infusion; IV Intake: [id number] 06:33 Drug: Phenergan (promethazine) 12.5 mg Route: IVP; Site: right antecubital; as6 06:35 Follow up: Response: No adverse reaction as6 Medication: 04:02 VIS not applicable for this client. as6 Intake: 06:03 IV: 1000ml; Total: 1000ml. as6 06:35 IV: 10ml; Total: 1010ml. as6 06:35 IV: 10ml; Total: 1020ml. as6 Outcome: 06:02 ER care complete, transfer ordered by . rt 06:34 Transferred by ground EMS to other acute care facility: [facility]. Transfer form completed. as6 06:34 Condition: stable 06:34 Instructed on the need for transfer. 06:55 Patient left the ED. as6 Signatures: Nilesh Monreal mw2 Beth Lyons Ashby, RN RN as6 Dandre Cantrell MD MD rt
[2022-11-13 07:16] VITALS: TEMP 97.7
[2022-11-13 07:19] VITALS: BP 184/115; O2SAT 96
== END 2022-11-13 06:55 ==
LOC: ER 02:58
DX: K92.0 Hematemesis (principal); F17.210 Nicotine dependence, cigarettes, uncomplicated
CPT/HCPCS: 36415; 80053; 83690; 85025; 85610; 85730; 86850; 86900; 86901; 87811; 96361; 96365; 96368; 96375; 99285; C9113; J2354; J2405; J2550; J7030

== ENCOUNTER 2024-10-14 12:20 | Emergency (ER) | payer SELFPAY ==
--- OUTSIDE RECORDS SUMMARY | 2024-10-14 12:24 | XMS REPORT | Continuity of Care Document ---
Author Name Unknown Address [address] [facility] [address] [place] [address] [facility] Address [address] [facility] [address] [place] [address] Care Team Providers Care Production Sorter Name Role Phone PCP, PATIENT DOES NOT HAVE A Primary Care Physic regina Unavailable TI GARCIA Attending Clinician Unavailable Ti Garcia MD Attending Clinician [phone] GILBERT REDDY Attending Clinician Unavailable Tiffanie PONCE, Dennis Mortensen Attending Clinician [phone] Miguelito Fleming MD Attending Clinician [phone] Gilbert Reddy MD Attending Clinician [phone] Yenifer Coburn Attending Clinician Unavailable TI GARCIA Admitting Clinician Unavailable MIGUELITO FLEMING Admitting Clinician UnavailMiguelito Jacinto MD Admitting Clinician [phone] Yenifer Coburn Admitting Clinician Unavailable Physician, No Primary or Family Admitting Clinic regina Unavailable Payers Payer Name Policy Type Policy Number Effective Date Expirati on Date Source [facility] [id number] 2023 00:00:00 [employer] [id number] 2023 00:00:00 Problems Condition Name Condition Details Condition Category Status Onset Date Resolution Date Last Treatment Date Treating Clinician Comments Source Hematemesi s with nausea Hematemesi s with nausea Disease Active 06-05 00:00: 00 [facility] Allergies, Adverse Reactions, Alerts Allergy Name Allergy Type Status Severity Reaction(s) Onset Date Inactive Date Treating Clinician Comments Source No Known Allergie s DA Active U 1-10 00:00: 00 [facility] [address] NO KNOWN ALLERGIE S Drug Class Active [facility] Social History Social Habit Start Date Stop Date Quantity Comments Source Gender identity [facility] Sexual orientation U [facility] History of tobacco use Cigarette Smoker [facility] Alcohol intake 2023-06-05 00:00:00 2023-06-05 00:00:00 Ex-drinker (finding) [facility] History of Social function 2023-06-05 00:00:00 2023-06-05 00:00:00 [facility] Sex Ass[birth year] At 1970 00:00:00 1970 00:00:00 [facility] Smoking Status Start Date Stop Date Source Ex-smoker 2023-06-05 00:00:00 2023-06-05 00:00:00 [facility] Medications Ordered Medication Name Filled Medication Name Start Date Stop Date Current Medication? Ordering Clinician Indication Dosage Frequency Signature (SIG) Comments Components Source HYDROcodone -acetaminop hen (NORCO 5) 5-325 mg tablet 1 tablet 11-10 09:54: 41 Yes 1{tbl} 1 tablet, Oral, Q6HPRN, Starting on Sat11/10/23 at 0354, Until Discontinu ed, Routine, Pain (scale 7-10) [facility] losartan (COZAAR) tablet 25 mg 06-05 19:00: 00 Yes 25mg 25 mg, Oral, BID, First dose on Sat06/05/23 at 1400, Until Discontinu ed, Routine [facility] esomeprazol e (NEXIUM) 20 mg capsule 06-05 15:09: 39 06-05 00:00 :00 No 20mg Take 20 mg by mouth daily before a meal. [facility] pantoprazol e (PROTONIX) injection 40 mg 06-05 13:00: 00 Yes 40mg 40 mg, Slow IV Push, Q12H, First dose on Sat06/05/23 at 0800, Until Discontinu ed [facility] magnesium sulfate in water 4 gram/50 mL (8 %) IV Piggyback 4 g 06-05 10:00: 00 06-05 11:28 :00 No 4g 4 g, IV Piggyback, at 25 mL/hr Administer over 120 Minutes, ONCE, 1 dose, On Sat06/05/23 at 0500, Routine [facility] lactated ringers IV infusion 1,000 mL 06-05 07:00: 00 06-05 12:27 :27 No 1000mL at 100 mL/hr, 1,000 mL, IV Infusion, CONTINUOUS , Starting on Sat06/05/23 at 0200, Until Sat06/05/23 at 0727, Routine [facility] ondansetron (ZOFRAN (PF)) injection 4 mg 06-05 05:47: 26 Yes 4mg 4 mg, Slow IV Push, Q6HPRN, Nausea and Vomiting (N/V), Starting on Sat06/05/23 at 0047
Do ses of ondansetro n 16 mg and above need to be administer ed via IV piggyback. For Dose >=24mg ECG monitoring is advisable.
[facility] acetaminoph en (TYLENOL) tablet 650 mg 06-05 05:40: 44 Yes 650mg 650 mg, Oral, Q6HPRN, Starting on Sat06/05/23 at 0040, Until Discontinu ed, Routine, Pain (scale 1-3) [facility] NaCl 0.9% (NS) IV infusion 1,000 mL 06-05 03:30: 00 06-05 05:43 :53 No 1000mL at 150 mL/hr, IV Infusion, CONTINUOUS , Starting on Sat06/04/23 at 2230, Until Sat06/05/23 at 0043, Routine [facility] diphenhydrA MINE (BENADRYL) injection 25 mg 06-05 00:30: 00 06-05 00:22 :00 No 25mg 25 mg, Slow IV Push, ONCE, 1 dose, On Sat06/04/23 at 1930, STAT [facility] metoclopram power HCl (REGLAN) injection 10 mg 06-05 00:30: 00 06-05 00:22 :00 No 10mg 10 mg, Slow IV Push, ONCE, 1 dose, On Sat06/04/23 at 1930, OTIS [facility] pantoprazol e 40 mg EC tablet 06-05 00:00: 00 Yes [id number] 40mg Take 1 tablet by mouth in the morning and 1 tablet in the evening. [facility] losartan 25 mg tablet 06-05 00:00: 00 Yes [id number] 25mg Take 1 tablet by mouth in the morning and 1 tablet in the evening. [facility] pantoprazol e (PROTONIX) 80 mg in NaCl 0.9% (NS) 500 mL infusion 06-04 23:45: 00 06-05 05:47 :11 No 8mg/h 8 mg/hr (50 mL/hr), IV Infusion, CONTINUOUS , Starting on Sat06/04/23 at 1845 [facility] pantoprazol e (PROTONIX) 80 mg in NaCl 0.9% (NS) 20 mL syringe 06-04 23:30: 00 06-04 23:32 :00 No 80mg 80 mg, IV Push, ONCE, 1 dose, On Sat06/04/23 at 1830, Administer over 2 Minutes, 20 mL [facility] NaCl 0.9% (NS) bolus infusion 1,000 mL 06-04 22:45: 00 06-05 03:01 :00 No 1000mL at 999 mL/hr, 1,000 mL, IV Infusion, ONCE, 1 dose, On Sat06/04/23 at 1745, STAT [facility] famotidine (PEPCID (PF)) injection 40 mg 06-04 22:45: 00 06-04 23:40 :00 No 40mg 40 mg, Slow IV Push, ONCE, 1 dose, On Sat06/04/23 at 1745, OTIS [facility] Immunizations Ordered Immunization Name Filled Immunization Name Date Status Comments Source TD Pres-Free Unknown Completed [facility] Vital Signs Vital Name Observation Time Observation Value Comments S ource Systolic blood pressure 2023-11-10 11:00:00 145 mm[Hg] [facility] Diastolic blood pressure 2023-11-10 11:00:00 90 mm[Hg] [facility] Heart rate 2023-11-10 11:00:00 74 /min [facility] Respiratory rate 2023-11-10 11:00:00 12 /min [facility] Oxygen saturation in Arterial blood by Pulse oximetry 2023-11-10 11:00:00 98 /min [facility] Body temperature 2023-11-10 09:42:00 35.89 Misty [facility] Body height 2023-11-10 09:42:00 185.4 cm [facility] Body weight 2023-11-10 09:42:00 88.451 kg [facility] BMI 2023-11-10 09:42:00 25.73 kg/m2 [facility] Diastolic blood pressure 2023-06-05 18:14:00 85 mm[Hg] [facility] Heart rate 2023-06-05 18:14:00 90 /min [facility] Body temperature 2023-06-05 18:14:00 37 Misty [facility] Respiratory rate 2023-06-05 18:14:00 16 /min [facility] Oxygen saturation in Arterial blood by Pulse oximetry 2023-06-05 18:14:00 96 /min [facility] Systolic blood pressure 2023-06-05 18:14:00 158 mm[Hg] [facility] Body height 2023-06-04 22:15:00 185.4 cm [facility] Body weight 2023-06-04 22:15:00 88.451 kg [facility] BMI 2023-06-04 22:15:00 25.73 kg/m2 [facility] Procedures Procedure Date / Time Performed Performing Clinician Source CT CERVICAL SPINE WO CONTRAST 2023-11-10 10:35:38 [facility] CA SIMPLE RPR SCALP/NECK/AX/GENIT/TRUN K 7.6-12.5CM 2023-11-10 09:57:00 [facility] CA SIMPLE RPR SCALP/NECK/AX/GENIT/TRUN K 7.6-12.5CM 2023-11-10 09:55:00 [facility] CBC WITHOUT DIFF 2023-06-05 19:09:00 Ceasar [facility] URINE DRUG (IMMUNOASSAY) - COMPREHENSIVE DRUG SCREEN 2023-06-05 18:17:00 [facility] CBC WITHOUT DIFF 2023-06-05 09:21:00 Kurtis Mcdonough [facility] MAGNESIUM 2023-06-05 07:37:[facility] 2023-06-05 07:37:00 Kurtis Mcdonough [facility] sity [facility] VITAMIN B12, LEVEL 2023-06-05 07:37:00 [facility] 2023-06-05 07:37:00 Kurtis cMdonough [facility] BASIC METABOLIC PANEL (NA, K, CL, CO2, GLUCOSE, BUN, CREATININE, CA) 2023-06-05 07:37:00 [facility] IRON PANEL 2023-06-05 07:37:00 Kurtis Mcdonough [facility] CBC WITHOUT DIFF 2023-06-05 07:37:00 [facility] RUPESH 2023-06-05 07:37:00 [facility] FIBRINOGEN 2023-06-05 07:37:00 Ceasar [facility] HB ABO GROUPING 2023-06-05 07:37:00 Kurtis Mcdonough [facility] URINALYSIS 2023-06-05 03:24:00 Dennis Moreno [facility] ABORH CONFIRMATION (LAB ONLY) 2023-06-05 02:18:00 Dennis Moreno [facility] LIPASE 2023-06-04 23:00:00 Dennis Moreno [facility] COMP. METABOLIC PANEL (41976) 2023-06-04 23:00:00 Dennis Moreno [facility] ETHANOL 2023-06-04 23:00:00 [facility] CBC WITH DIFF 2023-06-04 23:00:00 [facility] 2023-06-04 23:00:00 Sherman Moreno [facility] ACTIVATED PARTIAL THRMPLAS RUPESH 2023-06-04 23:00:00 Dennis Moreno [facility] HB ABO GROUPING 2023-06-04 23:00:00 Dennis Moreno [facility] HOSPITAL ADMISSION 2023-06-04 05:01:00 Doctor Un assigned, [place] [facility] Encounters Start Date/Time End Date/Time Encounter Type Admission Type Attending Clinicians Care Facility Care Department Encounter ID Source 2023-11-10 03:42:00 2023-11-10 06:08:00 Emergency X TI GARCIA [facility] ERT [id number] [facility] 2023-11-10 03:42:00 2023-11-10 06:08:00 Emergency Ti Garcia [facility] [id number] [facility] 2023-06-04 17:11:00 2023-06-05 18:50:00 Outpatient X GILBERT REDDY [facility] RADHA [id number] [facility] 2023-06-04 17:11:00 2023-06-05 18:50:00 Emergency Behzadi, Dennis Fleming, Miguelito Reddy, [facility] [id number] [facility] 2022-11-13 12:35:00 2022-11-14 16:01:00 Inpatient EM Yenifer Coburn HCATB TELE [id number] [facility] [place] 2022-11-13 13:36:00 2022-11-13 13:36:00 Outpatient Yenifer Coburn HCANW REF [id number] [facility] [address] Results Test Description Test Time Test Comments Results Resul t Comments Source CT CERVICAL SPINE WO CONTRAST 10:56:43 CT CERVICAL SPINE WITHOUT CONTRAST ORDERING PHYSICIAN: TI GARCIA HISTORY: Neck pain, trauma COMPARISON: None available. TECHNIQUE: Multiple contiguous images of the cervical spine were obtainedwith sagittal and coronal reconstructions. CT scan performed according toALARA (As low as reasonably achievable) principles. FINDINGS: No fracture. ?No subluxation. Degenerative disc disease is seen at C5/6 and C6/7. Erosive facetdegenerative changes are identified on the left side at C3/4. Paravertebral soft tissues are unremarkable. The visualized lung apices are clear. [facility] Laceration Repair 09:57:00 Ti Garcia MD ? ? 11/10/2023 ?5:55 AMLaceration Repair Date/Time: 11/10/2023 3:57 AM Performed by: Ti Garcia, MDAuthorized by: Ti Garcia MD ?Consent: ?Consent obtained: ?Verbal ?Consent given by: ?Patient ?Risks discussed: ?Pain, retained foreign body and need for additional repairUniversal protocol: ?Patient identity confirmed: ?Verbally with patientAnesthesia: ?Anesthesia method: ?Local infiltration ?Local anesthetic: ?Lidocaine 1% WITH epiLaceration details: ?Location: ?Shoulder/arm ?Shoulder/arm location: ?L lower arm ?Length (cm): ?6 ?Depth (mm): ?4Pre-procedure details: ?Preparation: ?Patient was prepped and draped in usual sterile fashionExploration: ?Limited defect created (wound extended): no ? ?Wound extent: no foreign bodies/material noted ? ?Contaminated: no ?Treatment: ?Amount of cleaning: ?StandardSkin repair: ?Repair method: ?Sutures ?Suture size: ?2-0 ?Wound skin closure material used: Silk. ?Suture technique: ?Simple interrupted ?Number of sutures: ?5Approximation: ?Approximation: ?CloseRepair type: ?Repair type: ?SimplePost-procedure details: ?Dressing: ?Non-adherent dressing ?Procedure completion: ?Tolerated well, no immediate complications [facility] Laceration Repair 7 09:55:00 Ti Garcia MD ? ? 11/10/2023 ?5:55 AMLaceration Repair Date/Time: 11/10/2023 3:55 AM Performed by: Ti Garcia, MDAuthorized by: Ti Garcia MD ?Consent: ?Consent obtained: ?Verbal ?Consent given by: ?Patient ?Risks discussed: ?Need for additional repair and painUniversal protocol: ?Patient identity confirmed: ?Verbally with patientAnesthesia: ?Anesthesia method: ?Local infiltration ?Local anesthetic: ?Lidocaine 1% w/o epi and lidocaine 1% WITH epiLaceration details: ?Location: ?Scalp ?Scalp location: ?L temporal ?Length (cm): ?2 ?Depth (mm): ?2Exploration: ?Limited defect created (wound extended): no ? ?Wound exploration: entire depth of wound visualized ? ?Contaminated: no ?Treatment: ?Amount of cleaning: ?StandardSkin repair: ?Repair method: ?Sutures ?Suture size: ?4-0 ?Wound skin closure material used: Vicryl. ?Suture technique: ?Horizontal mattress ?Number of sutures: ?1Approximation: ?Approximation: ?CloseRepair type: ?Repair type: ?SimplePost-procedure details: ?Dressing: ?Open (no dressing) ?Procedure completion: ?Tolerated well, no immediate complications [facility] 06:20:49 ALCOHOL<10mg/dL06/05/2023 1:20 AM [facility]<10 Rozhxadg05-219 Toxic>100 Depression of INDUSTRIAL ENGINEERING ANALYST>400 Fatalities ReportedL[facility]bock [facility] HospitalACTIVATED PARTIAL THRMPLAS [id number] 00:27:47* Test Item Value Reference Range Interpretation Comme [facility] APTT Patient (test code = 3173-2) 22 See_Comment L [Automated message] The system which generated this result transmitted reference range: 23 - 38 Seconds. The reference range was not used to interpret this result as normal/abnormal. ATA (test code = ATA) The [facility] patient population mean normal value for aPTT is 30 seconds. Lab Interpretation (test code = 98860-6) Abnormal [facility] HospitalProthrombin Time / [id number] 00:25:46* Test Item Value Reference Range Interpretation Comme [facility] PROTIME PATIENT (test code = 5964-2) 12.1 See_Comment [Automated messa ge] The system which generated this result transmitted reference range: 12.0 - 14.7 Seconds. The reference range was not used to interpret this result as normal/abnormal. INR (test code = 6301-6) 1.0 Normal INR <1.1; Warfarin Therapeutic range 2.0 to 3.0 or 2.5 to 3.5, depending upon the indications. Lab Interpretation (test code = 24614-1) Normal [facility] HospitalCOMP. METABOLIC PANEL (32648)2023-06-04 23:44:02* Test Item Value Reference Range Interpretation Comme [facility] NA (test code = 8706888552) 137 mmol/L 135-145 K (test code = 5856574679) 3.7 mmol/L 3.5-5.0 CL (test code = 7678523388) 101 mmol/L 98-108 CO2 TOTAL (test code = 4549160549) 27 mmol/L 23-31 AGAP (test code = 6667192947) 9 2-16 BUN (test code = 4494446725) 8 mg/dL 7-23 GLUCOSE (test code = 8929250604) 109 mg/dL 70-110 CREATININE (test code = 5779997545) 0.83 mg/dL 0.60-1.25 TOTAL BILI (test code = 8531826687) 0.6 mg/dL 0.1-1.1 CALCIUM (test code = 8671563784) 9.0 mg/dL 8.6-10.6 T PROTEIN (test code = 2785047211) 8.3 g/dL 6.3-8.2 H ALBUMIN (test code = 5698192178) 4.4 g/dL 3.5-5.0 ALK PHOS (test code = 5442689674) 100 U/L 34-122 ALTv (test code = 1742-6) 39 U/L 5-50 AST(SGOT) (test code = 7969877863) 39 U/L 13-40 eGFR (test code = 2539917511) 96.9 mL/min/1.73m2 ATA (test code = ATA) Association of Glomerular Filtration Rate (GFR) and Staging of Kidney Disease* + --+ --+ ------+| GFR (mL/min/1.73 m2) ?| With Kidney Damage ?| ?Without Kidney Damage+ --------+ --------+ +| ?>90 ?| ?Stage one ?| ? Normal ?+ ---+ ---+ -------+| ?60-89 ?| ?Stage two ?| ? Decreased GFR ? + --+ --+ ------+| ?30-59 ?| ?Stage three ?| ? Stage three ? + --+ --+ ------+| ?15-29 ?| ?Stage four ? | ? Stage four ?+ ---+ ---+ -------+| ?<15 (or dialysis) ? ?| ?Stage five ? | ? Stage five ?+ ---+ ---+ -------+ *Each stage assumes the associated GFR level has been in effect for at least three months. ?Stages 1 to 5, with or without kidney disease, indicate chronic kidney disease. Notes: Determination of stages one and two (with eGFR >59mL/min/1.73 m2) requires estimation of kidney damage for at least three months as defined by structural or functional abnormalities of the kidney, manifested by either:Pathological abnormalities or Markers of kidney damage (including abnormalities in the composition of the blood or urine or abnormalities in imaging tests). Lab Interpretation (test code = 12904-9) Abnormal [facility] HospitalLIPASE2023-08-[facility] 23:43:42* Test Item Value Reference Range Interpretation Comme nts LIPASE (test code = 4484659278) 98 U/L 0-220 Lab Interpretation (test cod e = 90173-9) Normal [facility] WITH [id number] 23:32:21* Test Item Value Reference Range Interpretation Comme nts WBC (test code = 6690-2) 10.99 See_Comment H [Automated messa ge] The system which generated this result transmitted reference range: 4.20 - 10.70 10*3/?L. The reference range was not used to interpret this result as normal/abnormal. RBC (test code = 789-8) 5.74 See_Comment H [Automated messa ge] The system which generated this result transmitted reference range: 4.26 - 5.52 10*6/?L. The reference range was not used to interpret this result as normal/abnormal. HGB (test code = 718-7) 16.4 g/dL 12.2-16.4 HCT (test code = 4544-3) 49.2 % 38.4-49.3 MCV (test code = 787-2) 85.7 fL 81.7-95.6 MCH (test code = 785-6) 28.6 pg 26.1-32.7 MCHC (test code = 786-4) 33.3 g/dL 31.2-35.0 RDW-SD (test code = 62780-5) 42.2 fL 38.5-51.6 RDW-CV (test code = 788-0) 13.5 % 12.1-15.4 PLT (test code = 777-3) 237 See_Comment [Automated messa ge] The system which generated this result transmitted reference range: 150 - 328 10*3/?L. The reference range was not used to interpret this result as normal/abnormal. MPV (test code = 21399-3) 10.7 fL 9.8-13.0 NRBC/100 WBC (test code = 6846388764) 0.0 See_Comment [Automated me ssage] The system which generated this result transmitted reference range: 0.0 - 10.0 /100 WBCs. The reference range was not used to interpret this result as normal/abnormal. NRBC x10^3 (test code = 6073571507) See_Comment [Automated messa ge] The system which generated this result transmitted reference range: 10*3/?L. The reference range was not used to interpret this result as normal/abnormal. GRAN MAT (NEUT) % (test code = 770-8) 75.9 % IMM GRAN % (test code = 2250905942) 0.50 % LYMPH % (test code = 736-9) 15.6 % MONO % (test code = 5905-5) 5.9 % EOS % (test code = 713-8) 1.6 % BASO % (test code = 706-2) 0.5 % GRAN MAT x10^3(ANC) (test code = 7783196090) 8.33 10*3/uL 1.99-6.95 H IMM GRAN x10^3 (test code = 4881780326) 0.06 10*3/uL 0.00-0.06 LYMPH x10^3 (test code = 731-0) 1.71 10*3/uL 1.09-3.23 MONO x10^3 (test code = 742-7) 0.65 10*3/uL 0.36-1.02 EOS x10^3 (test code = 711-2) 0.18 10*3/uL 0.06-0.53 BASO x10^3 (test code = 704-7) 0.06 10*3/uL 0.01-0.09 Lab Interpretation (test code = 45438-6) Abnormal [facility] HospitalType and Screen - ONCE [id number] 23:27:00 * Test Item Value Reference Range Interpretation Comme nts ABO & RH (test code = 20) A Positive IAT (test code = 1185) Negative [facility] HospitalBASIC METABOLIC [id number] 08:56:00* Test Item Value Reference Range Interpretation Comme nts SODIUM (test code = NA) 138 mmol/L 136-145 N POTASSIUM (test code = K) 3.8 mmol/L 3.4-4.5 N CHLORIDE (test code = CL) 104 mmol/L 98-107 N CARBON DIOXIDE (test code = CO2) 26 mmol/l 20-31 N GLUCOSE (test code = GLU) 89 mg/dL 74-106 N BLOOD UREA NITROGEN (test code = BUN) 15 mg/dL 9-23 GLOMERULAR FILTRATION RATE (test code = GFR) >=60 max estimate >60 The Glomerular Filtration Rate is a calculated parameterbased on serum Creatinine, patient age and sex. GFR valuesless than 60 mL/min/1.73 square meters are indicative ofChronic Kidney Disease. Values less than 15 mL/min/1.73square meters indicate Kidney failure. The calculation forGFR is based on the CKD-EPI (202) calculation. This formulais race indifferent and is the recommended formula for GFRby the National Kidney Foundation for Adults.The GFR will not calculate if the sex is unknown or if thepatient's age is <18 years. CREATININE (test code = CREAT) 0.99 mg/dL 0.70-1.30 N CALCIUM (test code = CA) 9.4 mg/dL 8.6-10.3 N CBC W/AUTO [id number] 08:26:00* Test Item Value Reference Range Interpretation Comme nts WHITE BLOOD CELL (test code = WBC) 9.76 K/mm3 5.0-12.0 N RED BLOOD CELL (test code = RBC) 5.48 M/mm3 4.70-6.10 N HEMOGLOBIN (test code = HGB) 15.2 G/DL 14.0-18.0 N HEMATOCRIT (test code = HCT) 47.2 % 38.8-50.0 N MEAN CELL VOLUME (test code = MCV) 86 fL 80-94 N MEAN CELL HGB (test code = MCH) 27.7 PGM 27-31 N MEAN CELL HGB CONCENTRATION (test code = MCHC) 32.2 G/DL 33-37 L RED CELL DISTRIBUTION WIDTH (test code = RDW) 14.2 % 11.6-16.2 N PLATELET COUNT (test code = PLT) 252 K/mm3 130-400 N MEAN PLATELET VOLUME (test c ode = MPV) 10.1 fl 7.4-10.4 N NEUTROPHIL % (test code = NT%) 67.9 % 43-65 H IMMATURE GRANULOCYTE % (test code = IG%) 0.5 % 0.0-2.0 N LYMPHOCYTE % (test code = LY%) 18.3 % 20.5-45.5 L MONOCYTE % (test code = MO%) 11.1 % 5.5-11.7 N EOSINOPHIL % (test code = EO%) 1.5 % 0.9-2.9 N BASOPHIL % (test code = BA%) 0.7 % 0.2-1.0 N NUCLEATED RBC % (test code = NRBC%) 0.0 % 0-1.0 N NEUTROPHIL # (test code = NT#) 6.62 K/mm3 2.2-4.8 H LYMPHOCYTE # (test code = LY#) 1.79 K/mm3 1.3-2.9 N MONOCYTE # (test code = MO#) 1.08 K/mm3 0.3-0.8 H EOSINOPHIL # (test code = EO#) 0.15 K/MM3 0.0-0.2 N BASOPHIL # (test code = BA#) 0.07 K/mm3 0.0-0.1 N HGB [id number] 02:09:00* Test Item Value Reference Range Interpretation Comme nts HEMOGLOBIN (test code = HGB) 15.3 G/DL 14.0-18.0 N HEMATOCRIT (test code = HCT) 46.2 % 38.8-50.0 N [id number] 18:48:00* Test Item Value Reference Range Interpretation Comme nts GLUBED (test code = GLUBED) 124 MG/DL 70-105 H HGB [id number] 17:28:00* Test Item Value Reference Range Interpretation Comme nts HEMOGLOBIN (test code = HGB) 15.6 G/DL 14.0-18.0 N HEMATOCRIT (test code = HCT) 46.9 % 38.8-50.0 N DRUGS OF ABUSE SCREEN [id number] 14:18:00* Test Item Value Reference Range Interpretation Comme nts UR COCAINE (test code = COCAU) Negative NEGATIVE UR CANABINOIDS (test code = CANU) POSITIVE NEGATIVE UR AMPHETAMINE (test code = AMPHU) POSITIVE NEGATIVE UR BARBITURATE (test code = BARBQLU) Negative NEGATIVE UR BENZODIAZEPINE (test code = BENZU) Negative NEGATIVE METHADONE (test code = METHDU) Negative NEGATIVE PROPOXYPHENE SCREEN (test co de = PROPXSQ) Negative NEGATIVE UR OPIATES QUAL (test code = OPIAQLU) Negative NEGATIVE OXYCODONE (test code = OXYCOD) Negative NEGATIVE UR PHENCYCLIDINE (PCP) (test code = PHENCU) Negative NEGATIVE UA RFLX MICR CULT IF [id number] 13:56:00* Test Item Value Reference Range Interpretation Comme nts UA COLOR (test code = COLU) Light-Yellow YELLOW UA APPEARANCE (test code = APPU) CLEAR CLEAR UA GLUCOSE DIPSTICK (test code = DGLUU) NEG MG/DL NEGATIVE UA BILIRUBIN DIPSTICK (test code = BILU) NEG NEGATIVE UA KETONE DIPSTICK (test code = KETU) 1+ MG/DL NEGATIVE A UA SPECIFIC GRAVITY (test code = SGU) 1.035 1.000-1.030 A UA BLOOD DIPSTICK (test code = LORAINE) TRACE NEGATIVE A UA PH DIPSTICK (test code = BJ) 7.0 4.5-8.5 UA PROTEIN DIPSTICK (test code = PROU) TRACE MG/DL NEGATIVE A UA UROBILINOGEN DIPSTICK (test code = URO) NORMAL EU/dL See_Comment [Automated Color Promosa ge] The system which generated this result transmitted reference range: <=1.0. The reference range was not used to interpret this result as normal/abnormal. UA NITRITE DIPSTICK (test code = PRADEEP) NEG NEGATIVE UA LEUKOCYTE ESTERASE DIPSTICK (test code = LEUU) NEG NEGATIVE UA WBC (test code = WBCU) 0-3 /HPF 0-3 UA RBC (test code = RBCU) 10-20 /HPF 0-3 A UA BACTERIA (test code = BACU) NONE SEEN /HPF NONE SEEN UA SQUAMOUS CELLS (test code = SQU) NONE SEEN /HPF NONE-FEW UA MUCUS (test code = MUCU) RARE /LPF NONE-FEW Indication for culture: Dysuria/FrequencySpecimen Description: CLEAN CATCH- CT ABD PELVIS [id number] 12:13:[address] [facility] : 1970 Sex: MPatient Name: JAKE DIANA Unit No: [id number] EXAMS: CPT: [id number] CT ABD PELVIS W/CONT 98849 EXAM - CT ABD PELVIS W/CONT HISTORY: abd pain vomiting COMPARISON: None. CT imaging was performed with iterative reconstruction technique and/or automated exposure control to reduce radiation dose. DLP: 757.99 mGy*cm. CONTRAST: Isovue 300, 100mL, IV FINDINGS: Calcified granuloma in the right lower lobe and bibasilar dependent atelectasis and/or scarring. Large ventral hernia seen with half of the stomach in the lower chest. The liver, spleen, pancreas, and adrenal glands unremarkable. Streak artifact from patient's arms limits evaluation of the kidneys. No hydronephrosis. No acute gallbladder inflammatory changes or biliary dilatation. No free air, retroperitoneal lymphadenopathy, or focal fluid collection seen. Mild atherosclerotic disease in the abdominal aorta. No bowel dilatation or acute bowel inflammatory changes seen. Appendix is normal in caliber. No pelvic free fluid or lymphadenopathy. No significant osseous abnormality seen. IMPRESSION: No acute CT abnormality seen. Large hiatalhernia. Bibasilar dependent atelectasis and/or scarring. at 1213 Reported and signed by: Dayanna Aldridge MD Name: JAKE DIANA [facility] Bety Phys: [id number] - Jhonny Chavez MD [address] [facility] : 1970 Age: 51 Sex: M [place], [place] Loc: [facility] Exam Date: 11/13/2022 Status: REG ER PH: FAX: PAGE 1 Signed Report (CONTINUED) Patient Name: JAKE DIANA Unit No: [id number] EXAMS: CPT: [id number] CT ABD PELVIS W/CONT 12142 (Continued) CC: Jhonny Chavez MD Technologist: Con Mari CTDI: 12.07 DLP: 757.99 Trscr Dt/Tm: 11/13/2022 (1213) by:[email or web address] Orig Print D/T: S: 11/13/2022 (1216) BATCH NO: N/A Name: JAKE DIANA [facility] Bety Phys: KHVEEU.Jhonny Schneider MD [address] : 1970 Age: 51Sex: [place] Donnel[place] Loc: [facility] Exam Date: 11/13/2022 Status: REG ER PH: FAX:PAGE 2 Signed Report Coronavirus 2019 nCoV [id number] 11:55:00* Test Item Value Reference Range Interpretation Comme nts Coronavirus 2019 nCoV Bedside (test code = [id number]) Negative NEGATIVE THE ID NOW COVID -19 EUA HAS NOT BEEN FDA CLEARED ORAPPROVED. IT HAS BEEN AUTHORIZED BY THE FDA UNDER ANEMERGENCY USE AUTHORIZATION FOR USE BY AUTHORIZEDLABORATORIES AND PATIENT CARE SETTINGS. THE TEST HAS BEENAUTHORIZED ONLY FOR THE DETECTION OF NUCLEIC ACID [id number], NOT FOR ANY OTHER VIRUSES OR PATHOGENS, AND ISONLY AUTHORIZED FOR THE DURATION OF THE DECLARATION THATCIRCUMSTANCES EXIST JUSTIFYING THE AUTHORIZATION OFEMERGENCY USE OF IN VITRO DIAGNOSTIC TESTS FOR DETECTIONAND/OR DIAGNOSIS OF COVID-19 UNDER SECTION 564(B)(1) OF THE[place], 21 U.S.C. 360bbb-3(b)(1), UNLESS THE AUTHORIZATION ISTERMINATED OR REVOKED SOONER.Negative results should be treated as presumptive and, ifinconsistent with clinical signs and symptoms or necessaryfor patient managmeent, should be tested with differentauthorizd or cleared molecular tests. Negative results donot preclude SARS-Cov-2 infection and should not be used asthe sole basis for patient management decisions. Negativeresults should be considered in the context of a patient'srecent exposures, history and presence of clinical signs andsymptons consistent with COVID-19. - CT HEAD/BRAIN W/O [id number] 10:49:[address] [facility] : 1970 Sex: MPatient Name: JAKE DIANA Unit No: [id number] EXAMS: CPT: [id number] CT HEAD/BRAIN W/O CONT 21721 CT HEAD WITHOUT CONTRAST: INDICATIONS: Hematemesis COMPARISON: None available TECHNIQUE: Axial CT imaging of the head without IV contrast administration. Coronal and sagittal planes were reconstructed. One or more of the following dose reduction techniques were used: Automated exposure control, adjustment of the mA and or Kv according to patient size, and / or utilization of iterative reconstruction technique. Total DPL: 835.56mGy*cm FINDINGS: Right frontal scalp swelling without adjacent bony fracture. There is no intracranial hemorrhage, midline shift, or mass-effect. The ventricle maintains normal size and configurations. The basilar cisterns are patent. No abnormal extra-axial fluid collection is seen. Mucosal thickening in the paranasal sinuses. The mastoid air cells are clear. IMPRESSION: No acute intracranial abnormality. Of note: If patient has persistent unexplained symptomatology,MRI may be helpful for further evaluation. at 1049 Reported and signed by: Etta Canales MD CC: Jhonny Chavez MD Technologist: Damon Bond CTDI: 40.74 DLP: 835.56 Trscr Dt/Tm: 11/13/2022 (1049) by:[email or web address] Orig Print D/T: S: 11/13/2022 (1052) BATCH NO: N/A Name: JAKE DIANA [facility] [place] Phys: [id number] - Jhonny Chavez MD [address] [facility] : 1970 Age: 51 Sex: M [place] Loc: [facility] Exam Date: 11/13/2022Status: REG ER PH: FAX: PAGE 1 Signed ReportB-TYPE NATRIURETIC [id number] 09:57:00* Test Item Value Reference Range Interpretation Comme nts B-TYPE NATRIURETIC PEPTIDE ( test code = BNP) 295 pg/mL 0-100 H BASIC METABOLIC [id number] 09:54:00* Test Item Value Reference Range Interpretation Comme nts SODIUM (test code = NA) 139 mmol/L 136-145 N POTASSIUM (test code = K) 3.9 mmol/L 3.4-4.5 N CHLORIDE (test code = CL) 102 mmol/L 98-107 N CARBON DIOXIDE (test code = CO2) 32 mmol/l 20-31 H GLUCOSE (test code = GLU) 118 mg/dL 74-106 H BLOOD UREA NITROGEN (test code = BUN) 10 mg/dL 9-23 N GLOMERULAR FILTRATION RATE (test code = GFR) >=60 max estimate >60 The Glomerular Filtration Rate is a calculated parameterbased on serum Creatinine, patient age and sex. GFR valuesless than 60 mL/min/1.73 square meters are indicative ofChronic Kidney Disease. Values less than 15 mL/min/1.73square meters indicate Kidney failure. The calculation forGFR is based on the CKD-EPI (2020) calculation. This formulais race indifferent and is the recommended formula for GFRby the National Kidney Foundation for Adults.The GFR will not calculate if the sex is unknown or if thepatient's age is <18 years. CREATININE (test code = CREAT) 0.88 mg/dL 0.70-1.30 N CALCIUM (test code = CA) 9.5 mg/dL 8.6-10.3 N LIVER FUNCTION [id number] 09:54:00* Test Item Value Reference Range Interpretation Comme nts TOTAL PROTEIN (test code = PROT) 7.8 g/dL 5.7-8.2 N ALBUMIN (test code = ALB) 3.8 g/dl 3.4-5.0 N BILIRUBIN TOTAL (test code = BILT) 0.4 mg/dL 0.3-1.2 N BILIRUBIN DIRECT (test code = BILD) 0.1 mg/d/L 0.0-0.3 N BILIRUBIN INDIRECT (test cod e = BILIND) 0.3 mg/dL 0.0-1.2 N SGOT/AST (test code = AST) 26 U/L 0-34 N SGPT/ALT (test code = ALT) 31 U/L 10-49 N ALKALINE PHOSPHATASE (test c ode = ALKP) 98 U/L 46-116 N [id number] 09:54:00* Test Item Value Reference Range Interpretation Comme nts ALCOHOL (test code = ALC) 4.2 mg/dL 0.0-80.0 N [id number] 09:53:00* Test Item Value Reference Range Interpretation Comme nts TROPONIN-I (test code = TROPI) 15.1 ng/L 0.0-54.0 N CAUTION: UNITS O F THE CURRENT TEST METHODOLOGY (ng/L) DIFFERFROM THE PRIOR TEST METHODOLOGY (ng/mL) BY A FACTOR OF 1000.RESULTS FROM DIFFERENT METHODS SHOULD NOT BE COMPARED TO ONEANOTHER QUANTITATIVE RESULTS AND URLS MAY VARY BY METHOD. IN ORDER TO DISTINGUISH ACUTE ELEVATIONS OF HIGH SENSITIVETROPONIN FROM OTHER CLINICAL CONDITIONS, THE UNIVERSALDEFINITION OF MYOCARDIAL INFARCTION STRESSES CLINICALASSESSMENT AND THE NEED FOR SERIAL MEASUREMENTS TO OBSERVE ARISE AND/OR FALL ABOVE THE UPPER LIMIT OF THE REFERENCERANGE. CONSIDERATION FOR CARDIOLOGY EVALUATION AND DRAWINGTHIRD hs-cTn, INCLUDING IF CHANGE IN THE CLINICAL STATUS ORSERIAL hs-cTns ARE INCREASING, PARTICULARLY ABOVE THE 99THGENDER-SPECIFIC PERCENTILE. [id number] 09:53:00* Test Item Value Reference Range Interpretation Comme nts AMMONIA (test code = AMM) 28 mcg/dL 19-54 N - XR CHEST 1 [id number] 09:52:[address] [facility] : 1970 Sex: MPatient Name: JAKE DIANA Unit No: [id number] EXAMS: CPT: [id number] XR CHEST 1 V 24007 EXAM: XR CHEST1 VIEW DATE: 11/13/2022 9:11 AM INDICATION: Code sepsis COMPARISON: None. TECHNIQUE: AP chest. FINDINGS: Lines, tubes and hardware: None. Lungs and pleura: Pulmonary vascularity is normal. There is a 7 mm calcified granuloma at the right midlung zone. The lungs are clear. The costophrenic sulci are sharp without effusion. No pneumothorax is identified. Heart and mediastinum: The heart size is normal. The mediastinal contours are normal. Bones and soft tissues: No acute abnormality. IMPRESSION: No acute cardiopulmonary abnormalities. [id number] Reported and signed by: KRISTINE BRIONES M.D. CC: Jhonny Chavez MD Technologist: THIERNO SCHULTE Fluoro Time: DAP (Gy m2): Air Kerma (mGy): Trscr Dt/Tm: 11/13/2022 (0952) by:[email or web address] Orig Print D/T:S: 11/13/2022 (0956) BATCH NO: N/A Name: JAKE DIANA [facility] Bety Phys: [id number] - Jhonny Chavez MD [address] [facility] : 1970 Age: 51 Sex: M [place] Loc: [facility] Ex am Date: 11/13/2022 Status: REG ER PH: FAX: PAGE 1 Signed ReportPROTHROMBIN TIME 2022-11-13 09:50:00* Test Item Value Reference Range Interpretation Comme nts PROTHROMBIN TIME PATIENT (test code = PTP) 12.8 SECONDS 9.5-12.9 N INTERNATIONAL NORMAL RATIO (test code = INR) 1.1 0.85-1.15 N The INR is to be used only for monitoring ORAL ANTICOAGULANTTHERAPY. Indication INR Value1. Prophylaxis/treatment of: Venous Thrombosis, Pulmonary Embolism 2.0 - 3.02. Prevention of systemic embolism from: Tissue heart valves 2.0 - 3.0 Acute myocardial infarction (to present systemic embolism)* 2.0 - 3.0 Valvular heart disease 2.0 - 3.0 Atrial fibrillation 2.0 - 3.03. Mechanical prosthetic valves (high risk) 2.5 - 3.5 * If oral anticoagulant therapy is elected to preventrecurrent myocardial infarction, an INR of 2.5-3.5 isrecommended, consistent with Food and Drug Administrationrecommen dations. THROMBOPLASTIN TIME [id number] 09:50:00* Test Item Value Reference Range Interpretation Comme nts THROMBOPLASTIN TIME PARTIAL (test code = PTT) 34 SECONDS 25.1-36.5 N LACTIC [id number] 09:48:00* Test Item Value Reference Range Interpretation Comme nts LACTIC ACID (test code = LACT) 1.2 mmol/L 0.5-2.2 N CBC W/AUTO [id number] 09:33:00* Test Item Value Reference Range Interpretation Comme nts WHITE BLOOD CELL (test code = WBC) 9.67 K/mm3 5.0-12.0 N RED BLOOD CELL (test code = RBC) 5.29 M/mm3 4.70-6.10 N HEMOGLOBIN (test code = HGB) 14.9 G/DL 14.0-18.0 N HEMATOCRIT (test code = HCT) 45.8 % 38.8-50.0 N MEAN CELL VOLUME (test code = MCV) 87 fL 80-94 N MEAN CELL HGB (test code = MCH) 28.2 PGM 27-31 N MEAN CELL HGB CONCENTRATION (test code = MCHC) 32.5 G/DL 33-37 L RED CELL DISTRIBUTION WIDTH (test code = RDW) 13.6 % 11.6-16.2 N PLATELET COUNT (test code = PLT) 225 K/mm3 130-400 N MEAN PLATELET VOLUME (test c ode = MPV) 9.7 fl 7.4-10.4 N NEUTROPHIL % (test code = NT%) 81.3 % 43-65 H IMMATURE GRANULOCYTE % (test code = IG%) 0.2 % 0.0-2.0 N LYMPHOCYTE % (test code = LY%) 11.5 % 20.5-45.5 L MONOCYTE % (test code = MO%) 6.6 % 5.5-11.7 N EOSINOPHIL % (test code = EO%) 0.2 % 0.9-2.9 L BASOPHIL % (test code = BA%) 0.2 % 0.2-1.0 N NUCLEATED RBC % (test code = NRBC%) 0.0 % 0-1.0 N NEUTROPHIL # (test code = NT#) 7.86 K/mm3 2.2-4.8 H LYMPHOCYTE # (test code = LY#) 1.11 K/mm3 1.3-2.9 L MONOCYTE # (test code = MO#) 0.64 K/mm3 0.3-0.8 N EOSINOPHIL # (test code = EO#) 0.02 K/MM3 0.0-0.2 N BASOPHIL # (test code = BA#) 0.02 K/mm3 0.0-0.1 N History and Physical Notes Date/Time Note Provider Source 2023-06-04 23:02:48 Formatting of this n ote is different from the original. Date of Service: 06/04/2023 CHIEF COMPLAINT: Hematemesis HISTORY OF PRESENT ILLNESS Jake Diana is a 52 year old male with a PMH of GERD who presents as transfer from [place] for hematemesis. Limited history obtained as patient not cooperative and states he prefers to sleep. He states he had multiple episodes of vomiting blood mixed with bile the past few days, but he was not sure how many times. He also states he has had associated epigastric pain. He denied any current alcohol use and states his last alcoholic drink was many years ago. He states the only medication he takes is Nexium for GERD and denied any current NSAID use. He states he has a history of Barretts Esophagus and has had an EGD in the past but is not sure about the results. He denied any colonoscopy. Upon arrival to [place], patient afebrile, BP 195/91, pulse 64, satting 97% on RA. Labs displaying WBC 10.99, Hgb 16.4, PLT 237, Na 137, K 3.7, creatinine 0.83, lipase 98. He Received 1L NS bolus, Famotidine 40 mg, Benadryl 25 mg, and Reglan 10 mg at [place] ED. He was transferred to [facility] for GI evaluation. Upon arrival to [facility], patient afebrile, BP 156/89, pulse 72, satting 97% on RA. Past medical history: has a past medical history of GERD (gastroesophageal reflux disease). Past surgical history: has no past surgical history on file. Social history: reports that he has quit smoking. His smoking use included cigarettes. He does not have any smokeless tobacco history on file. He reports that he does not currently use alcohol. Family history: family history includes Hypertension in his mother. Allergies: No Known Allergies MEDICATIONS reviewed REVIEW OF SYSTEMS Positive and negative per above HPI PHYSICAL EXAMINATION Vitals: 06/04/23 1715 06/04/23 1918 06/04/23 2202 06/05/23 0034 BP: (!) 204/113 (!) 195/91 (!) 180/87 (!) 156/89 BP Location: Right arm Patient Position: Lying left side Pulse: 64 64 65 72 Resp: 17 12 18 15 Temp: 36.4 ?C (97.6 ?F) 37.3 ?C (99.2 ?F) TempSrc: Oral SpO2: 98% 97% 100% 97% Weight: 88.5 kg (195 lb) Height: 1.854 m (6' 1") General: no acute distress. HEENT: Normocephalic. Mucous membranes pink and moist. Heart: Regular rate, rhythm. No gallops, rubs, or murmurs. Normal S1 and S2 heart sounds Lungs: Normal effort. Clear to auscultation bilaterally. Abdomen: Soft, nondistended, non-tender to palpation, BS+ Extremities: No peripheral edema. No clubbing or cyanosis. LABS - reviewed IMAGING - reviewed ASSESSMENT/PLAN Jake Diana is a 52 year old male with PMH as listed above, admitted to the hospital with: Hematemesis Epigastric pain Hx Vazquez's esophagus GERD Patient presenting with reported hematemesis for two days. He is hemodynamically stable and on physical exam, no TTP on abdomen. Hgb drawn in [place] was 16.4. He was started on a protonix gtt and transferred to [facility] for GI evaluation. Will need to monitor/confirm hematemesis and will monitor Hgb - Admit to [place] - F/u admission labs - Monitor for hematemesis or signs of bleeding - Two large bore IV's - H&H Q6H - LR fluids - Protonix 40 mg IV BID - Zofran PRN - Consider GI consult in AM - Avoid NSAIDs Pain ControlledTylenol Prophylaxis: DVT- Contraindicated: Cranial/GI Bleeding or other Hemorrhage present Stress Ulcer: pantoprazole Code Status: addressed: Vicki Mcdonough Internal Medicine, PGY-3 Associated attestation - Miguelito Fleming MD - 06/05/2023 1:46 AM CDT I personally examined the patient on 06/04/[address] Mcdonough's resident note as written. I actively participated in the decision-making process. Please see the resident's note for additional details. Miguelito Fleming MD Division of Internal [employer] [facility]
--- NOTE | 2024-10-14 12:56 | RAD REPORT ---
EXAMINATION: CT ABDOMEN AND PELVIS WITHOUT CONTRAST CLINICAL INDICATION: ABD PAIN TECHNIQUE: CT abdomen and pelvis was performed, without IV contrast, as per department protocol. Axia l, sagittal and coronal reconstructions were obtained. One or more of the following dose reduction techniques were used: Automated exposure control, adjustment of the mA and kV according to the patien t size, and iterative reconstruction. Unless otherwise specified, incidental findings do not require dedicated imaging follow-up. COMPARISON: 02/10/2016 FINDINGS: The lack of intravenous contrast limits the sensitivity of this exam for evaluation of solid visceral organs, vascular structures, and retroperitoneum. LOWER CHEST: 5 mm nodule is seen right lower lobe medially. Moderate axial hiatal hernia. LIVER:Normal in size and contour. No focal lesion. Grossly unremarkable gallbladder. SPLEEN: Normal size. No focal lesion. PANCREAS: No mass, ductal dilation, or christopher-pancreatic fluid. ADRENALS: Normal; no mass. KIDNEYS AND URETERS: Normal size and contour. No hydronephrosis. Punctate calculus right kidney. URINARY BLADDER: Normal contour. GASTROINTESTINAL TRACT: No evidence of bowel obstruction, significant free fluid, free air or abscess . Mild/moderate stool retention in the colon. APPENDIX: Normal appendix. LYMPH NODES: No lymphadenopathy. MUSCULOSKELETAL: Mild degenerative levoscoliosis of the lumbar spine. ADDITIONAL FINDINGS: None. IMPRESSION: No acute or concerning abnormalities in the abdomen or pelvis, with evaluation limited by lack of IV contrast. Moderate axial hiatal hernia. Punctate calculus right kidney without hydronephrosis.
[2024-10-14] MEDS ORDERED: CEFTRIAXONE 1000 MG/VIAL ONE (13:10)
[2024-10-14] MEDS ORDERED: PANTOPRAZOLE 40 MG INJ ONE (13:10)
[2024-10-14] MEDS ORDERED: NA CHLORIDE 0.9% 250 ML ONE (13:11)
[2024-10-14] MEDS ORDERED: MORPHINE 4 MG/ML SYR ONE (13:11)
[2024-10-14] MEDS ORDERED: ONDANSETRON 4 MG/2 ML VIAL ONE (13:26)
[2024-10-14 13:34] LABS: Absolute Basophils 0.1 K/uL (0-0.5); Absolute Eosinophils 0.1 K/uL (0-0.5); Absolute Lymphocytes (CBC) 1.1 K/uL (0.7-4.9); Absolute Monocytes 0.4 K/uL (0.1-1.3); Absolute Neutrophil 7.9 K/uL (1.8-8.0); Basophils % 0.9 % (0-1.3); Eosinophils % 1.1 % (0-4.4); Hematocrit 51.1 % (39.6-49.0); Hemoglobin 16.5 g/dL (13.6-17.9); Lymphocytes % 11.3 % (15.3-44.8); MCH 29.2 pg (27.0-35.0); MCHC 32.3 g/dL (32.0-36.0); MCV 90.5 fL (80-100); MPV 7.9 fL (7.6-11.3); Monocytes % 4.4 % (3.3-12.3); Neutrophils % 82.3 % (41.7-73.7); Nucleated Red Blood Cells % 0.1 % (0-0); Platelets 227 thou/uL (152-406); RBC Red Blood Cell Count 5.65 M/uL (4.33-5.43); Red Cell Distribution Width 13.5 % (12.1-15.2)
[2024-10-14 13:37] LABS: PT Prothrombin Time 9.5 SECONDS (9.4-12.5); PTT, Activated Partial Thromb 38.5 SECONDS (24.3-36.9); Protime INR 0.84
[2024-10-14 13:46] LABS: Albumin 3.8 g/dL (3.4-5.0); Albumin/Globulin Ratio 0.9 (1.1-1.8); Anion Gap 7.5 mEq/L (5.0-15.0); Bilirubin Total 0.4 mg/dL (0.2-1.0); Globulin 4.4 g/dL (2.3-3.5); Potassium 3.5 mEq/L (3.5-5.1); Protein, Total 8.2 g/dL (6.4-8.2)
--- NOTE | 2024-10-14 15:04 | EDPHYS ---
Physician Documentation [facility] Name: Jake Diana Age: 53 yrs Sex: Male : 1970 Arrival Date: 10/14/2024 Time: 12:20 Bed 20 Private MD: ED Physician Levi Cleaning HPI: 10/14 12:30 This 53 yrs old Male presents to ER via EMS with complaints of ec2 Nausea/Vomiting. 12:30 Patient arrives today for evaluation of hematemesis. Patient complained of abdominal ec2 pain along with nausea and vomiting. Patient reports history of esophageal varices, reports history of Vazquez's esophagus. States that he does not have underlying liver pathology, no significant substance abuse. Patient reports no previous abdominal surgeries.. Historical: - Allergies: 12:21 No Known Allergies; ll1 - PMHx: 12:21 Vazquez's Esophagus; Hypertension; esophageal varices; ll1 - Immunization history:: Adult Immunizations up to date. - Infectious Disease History:: Denies. - Social history:: Smoking status: unknown. ROS: 12:30 Constitutional: as per hpi ec2 Exam: 12:30 Constitutional: GEN: NAD Head: atraumatic Eyes: EOMI Ears: External ears are ec2 normal. CV: regular rate LUNGS: no respiratory distress ABD: non-distended SKIN: no evidence of rashes MSK: no evidence of trauma Vital Signs: 12:27 BP 206 / 106; Pulse 51; Resp 18; Temp 97.5; Pulse Ox 100% on R/A; Weight 88.45 kg; ll1 Height 6 ft. 1 in. ; Pain 10/10; 13:36 BP 192 / 101; Pulse 60; Pulse Ox 99% on R/A; MAP 126 mmHg; Pain 10/10; tm6 13:46 BP 198 / 84; Pulse 54; Pulse Ox 98% on R/A; MAP 117 mmHg; tm6 14:42 BP 204 / 108; Pulse 52; Pulse Ox 99% on R/A; MAP 133 mmHg; tm6 15:43 BP 201 / 91; Pulse 59; Pulse Ox 100% on R/A; MAP 123 mmHg; tm6 17:27 BP 175 / 75; Pulse 67; Pulse Ox 100% on R/A; MAP 104 mmHg; tm6 12:27 Body Mass Index 25.73 (88.45 kg, 185.42 cm) ll1 12:27 Pain Scale: Adult ll1 13:36 Pain Scale: Adult tm6 MDM: 12:24 Medical Screening Exam initiated ec2 12:30 Data reviewed: vital signs, nurses notes. ED course: Patient arrives today for ec2 abdominal pain along with nausea and vomiting and hematemesis. Examination is revealing for well-appearing nontoxic individual is otherwise hemodynamically stable. Will obtain lab work, CT imaging. Will empirically treat for esophageal varices.. 14:14 ED course: Further discussion with EMS, they had witnessed vomit that they described as ec2 gastric content with blood-tinged sputum noted.. 15:02 ED course: Will transfer patient for concern for variceal bleed, ulcer given the ec2 hematemesis and as well as for EMS.. 15:33 ED course: Discussed the case with GI at [facility] who agrees accept patient for ec2 transfer.. 16:00 ED course: Discussed case with hospitalist agrees except the patient for transfer. ec2 10/14 12:24 Order name: CBC with Diff; Complete Time: 14:05 ec2 10/14 12:24 Order name: CMP; Complete Time: 14:05 ec2 10/14 12:24 Order name: Lipase; Complete Time: 14:05 ec2 10/14 12:24 Order name: Type And Screen; Complete Time: 14:57 ec2 10/14 12:32 Order name: PT-INR; Complete Time: 14:05 ec2 10/14 12:32 Order name: Ptt, Activated; Complete Time: 14:05 ec2 10/14 12:24 Order name: CT Abd/Pelvis - Without Contrast; Complete Time: 13:22 ec2 10/14 12:24 Order name: IV Saline Lock; Complete Time: 13:35 ec2 10/14 12:24 Order name: Labs collected and sent; Complete Time: 13:35 ec2 Administered Medications: 13:35 Drug: Pantoprazole IVP 80 mg IVP once Route: IVP; Site: right hand; tm6 15:21 Follow up: Response: No adverse reaction tm6 13:35 Drug: Pantoprazole IV 8 mg/hr IV at 25 ml/hr continuous; (Standard dilution is 80 mg in tm6 250 mL NS) Route: IV; Rate: 25 ml/hr; Site: right hand; 13:35 Drug: morphine IVP or IV 4 mg IVP once over 4 mins Route: IVP; Infused Over: 4 mins; tm6 Site: right hand; 15:21 Follow up: Response: No adverse reaction; Pain is decreased tm6 13:35 Drug: Rocephin IV 1 grams IV at calculated rate once; Given slow IV push per pharmacy tm6 instructions Route: IV; Rate: calculated rate; Site: right hand; 15:21 Follow up: Response: No adverse reaction tm6 17:31 Follow up: IV Status: Completed infusion; IV Intake: 10ml tm6 13:36 Drug: Ondansetron IVP 4 mg IVP once; over 2 minutes Route: IVP; Site: right hand; tm6 15:20 Follow up: Response: No adverse reaction tm6 15:28 Not Given (Physician Discretion): [id number] mg IV at bolus once tm6 15:31 Drug: hydrALAZINE IVP 10 mg IVP once Route: IVP; Site: right hand; tm6 17:31 Follow up: Response: No adverse reaction tm6 15:43 Drug: metoCLOPramide IVP 10 mg IVP once; over 1 to 2 minutes Route: IVP; Site: right tm6 hand; 17:31 Follow up: Response: No adverse reaction tm6 Disposition Summary: 10/14/24 15:03 Transfer Ordered Notes: Transfer Location: Other Acute Care Facility ec2 Reason: Higher level of care ec2 Condition: Stable ec2 Problem: an acute exacerbation ec2 Symptoms: have improved ec2 Accepting Physician: transferring doc(10/14/24 18:18) ll1 Diagnosis - GI Bleed/ Gastrointestinal hemorrhage, unspecified ec2 Forms: - Medication Reconciliation Form ec2 - SBAR form ec2 Signatures: Dispatcher [employer] EDLuisa Mary RN RN ll1 Levi Cleaning MD MD ec2 Jacek Kitchen RN RN tm6 Corrections: (The following items were deleted from the chart) 12:24 12:24 CBC+H.LAB.BRZ ordered. EDMS EDMS 12:24 12:24 COMPREHENSIVE METABOLIC PANEL+C.LAB.BRZ ordered. EDMS EDMS 12:24 12:24 LIPASE+C.LAB.BRZ ordered. EDMS EDMS 12:24 12:24 TYPE AND SCREEN+BB.LAB.BRZ ordered. EDMS EDMS 12:24 12:24 Abdomen Pelvis Wo Con+CT.RAD.BRZ ordered. EDMS EDMS 18:18 15:03 transferring doc ec2 ll1
--- NOTE | 2024-10-14 15:04 | ER ---
Nurse's Notes [facility] Name: Jake Diana Age: 53 yrs Sex: Male : 1970 Arrival Date: 10/14/2024 Time: 12:20 Bed 20 Private MD: Diagnosis: GI Bleed/ Gastrointestinal hemorrhage, unspecified Presentation: 10/14 12:22 Chief complaint: Patient states: Abdominal pain with blood in vomit for 2 days. Out of ll1 Nexium and BP medication. EMS states: BP 160's/110, HR 62, 100% RA. Coronavirus screen: Client denies travel out of the [place] in the last 14 days. At this time, the client does not indicate any symptoms associated with coronavirus-19. Ebola Screen: Patient denies travel to an Ebola-affected area in the 21 days before illness onset. Initial Sepsis Screen: Does the patient meet any 2 criteria? No. Patient's initial sepsis screen is negative. Does the patient have a suspected source of infection? No. Patient's initial sepsis screen is negative. Risk Assessment: Do you want to hurt yourself or someone else? Patient reports no desire to harm self or others. Onset of symptoms was October 13, 2024. 12:22 Method Of Arrival: EMS: [facility] 12:22 Acuity: CHRISTIAN 3 ll1 Triage Assessment: 12:28 General: Appears uncomfortable, ill, Behavior is cooperative, appropriate for age, ll1 listless. General: Reports fatigue for. Pain: Complains of pain in abdomen Pain currently is 10 out of 10 on a pain scale. Quality of pain is described as aching, crampy. GI: Reports lower abdominal pain, upper abdominal pain, cramping, nausea, vomiting, blood in vomit. Historical: - Allergies: 12:21 No Known Allergies; ll1 - PMHx: 12:21 Vazquez's Esophagus; Hypertension; esophageal varices; ll1 - Immunization history:: Adult Immunizations up to date. - Infectious Disease History:: Denies. - Social history:: Smoking status: unknown. Screenin:38 [facility] ED Fall Risk Assessment (Adult) History of falling in the last 3 months, tm6 including since admission No falls in past 3 months (0 pts) Confusion or Disorientation No (0 pts) Intoxicated or Sedated No (0 pts) Impaired Gait No (0 pts) Mobility Assist Device Used No (0 pt) Altered Elimination No (0 pt) Score/Fall Risk Level 0 - 2 = Low Risk Oriented to surroundings, Maintained a safe environment, Educated pt \T\ family on fall prevention, incl call for assistance when getting out of bed. Abuse screen: Denies threats or abuse. Denies injuries from another. Nutritional screening: No deficits noted. Tuberculosis screening: No symptoms or risk factors identified. Assessment: 13:38 General: Appears distressed, ill, Behavior is cooperative. Pain: Complains of pain in tm6 abdomen Pain currently is 10 out of 10 on a pain scale. Pain began 2-3 days ago. Neuro: Level of Consciousness is awake, alert, obeys commands, Oriented to person, place, time, situation. Cardiovascular: Patient's skin is warm and dry. Respiratory: Airway is patent Respiratory effort is even, unlabored, Respiratory pattern is regular, symmetrical. GI: Abdomen is flat, non-distended, Reports lower abdominal pain, upper abdominal pain, nausea, vomiting. : No signs and/or symptoms were reported regarding the genitourinary system. EENT: No signs and/or symptoms were reported regarding the EENT system. Derm: No signs and/or symptoms reported regarding the dermatologic system. Musculoskeletal: No signs and/or symptoms reported regarding the musculoskeletal system. 14:51 Reassessment: Patient and/or family updated on plan of care and expected duration. Pain tm6 level reassessed. Patient is alert, oriented x 3, equal unlabored respirations, skin warm/dry/pink. 17:34 Reassessment: report given to Leonor KING at [facility]. tm6 Vital Signs: 12:27 BP 206 / 106; Pulse 51; Resp 18; Temp 97.5; Pulse Ox 100% on R/A; Weight 88.45 kg; ll1 Height 6 ft. 1 in. ; Pain 10/10; 13:36 BP 192 / 101; Pulse 60; Pulse Ox 99% on R/A; MAP 126 mmHg; Pain 10/10; tm6 13:46 BP 198 / 84; Pulse 54; Pulse Ox 98% on R/A; MAP 117 mmHg; tm6 14:42 BP 204 / 108; Pulse 52; Pulse Ox 99% on R/A; MAP 133 mmHg; tm6 15:43 BP 201 / 91; Pulse 59; Pulse Ox 100% on R/A; MAP 123 mmHg; tm6 17:27 BP 175 / 75; Pulse 67; Pulse Ox 100% on R/A; MAP 104 mmHg; tm6 12:27 Body Mass Index 25.73 (88.45 kg, 185.42 cm) ll1 12:27 Pain Scale: Adult ll1 13:36 Pain Scale: Adult tm6 ED Course: 12:21 Patient arrived in ED. ll1 12:21 Levi Cleaning MD is Attending Physician. ec2 12:21 Arm band placed on Patient placed in an exam room, on a stretcher. ll1 12:24 Triage completed. ll1 12:33 Jacek Kitchen, FERNANDO is Primary Nurse. tm6 12:34 Missed attempt(s): 20 gauge in right antecubital area. Bleeding controlled, band aid ph applied, catheter tip intact. 12:50 CT Abd/Pelvis - Without Contrast In Process Unspecified. EDMS 13:08 Missed attempt(s): 22 gauge in left wrist. Bleeding controlled, band aid applied, tm6 catheter tip intact. 13:15 Initial lab(s) drawn, by [facility], sent to lab. ll1 13:21 Inserted saline lock: 22 gauge in right hand, using aseptic technique. Blood collected. ll1 Flushed with 10 mL NS. 13:38 Patient has correct armband on for positive identification. Bed in low position. Call tm6 light in reach. Side rails up X2. Provided Education on: use of call garcia. Client placed on continuous cardiac and pulse oximetry monitoring. NIBP monitoring applied. Pulse ox on. NIBP on. Noise minimized. Lights dimmed. Warm blanket given. 15:[address] [facility]. bd 16:54 pt accepted in transfer to [facility] by dr Pisano admin approval given by xi Irene pt going to [id number]. Administered Medications: 13:35 Drug: Pantoprazole IVP 80 mg IVP once Route: IVP; Site: right hand; tm6 15:21 Follow up: Response: No adverse reaction tm6 13:35 Drug: Pantoprazole IV 8 mg/hr IV at 25 ml/hr continuous; (Standard dilution is 80 mg in tm6 250 mL NS) Route: IV; Rate: 25 ml/hr; Site: right hand; 13:35 Drug: morphine IVP or IV 4 mg IVP once over 4 mins Route: IVP; Infused Over: 4 mins; tm6 Site: right hand; 15:21 Follow up: Response: No adverse reaction; Pain is decreased tm6 13:35 Drug: Rocephin IV 1 grams IV at calculated rate once; Given slow IV push per pharmacy tm6 instructions Route: IV; Rate: calculated rate; Site: right hand; 15:21 Follow up: Response: No adverse reaction tm6 17:31 Follow up: IV Status: Completed infusion; IV Intake: 10ml tm6 13:36 Drug: Ondansetron IVP 4 mg IVP once; over 2 minutes Route: IVP; Site: right hand; tm6 15:20 Follow up: Response: No adverse reaction tm6 15:28 Not Given (Physician Discretion): [id number] mg IV at bolus once tm6 15:31 Drug: hydrALAZINE IVP 10 mg IVP once Route: IVP; Site: right hand; tm6 17:31 Follow up: Response: No adverse reaction tm6 15:43 Drug: metoCLOPramide IVP 10 mg IVP once; over 1 to 2 minutes Route: IVP; Site: right tm6 hand; 17:31 Follow up: Response: No adverse reaction tm6 Medication: 13:38 VIS not applicable for this client. tm6 Intake: 17:31 IV: 10ml; Total: 10ml. tm6 Outcome: 15:03 ER care complete, transfer ordered by . ec2 18:18 Patient left the ED. 1 Signatures: Dispatcher [employer] EDAnupama Chen Patricia RN RN Luisa Lepe RN RN 1 Levi Cleaning MD MD ec2 Jacek Kitchen RN RN tm6 Corrections: (The following items were deleted from the chart) 13:08 13:08 Missed attempt(s): 22 gauge in left wrist. tm6 tm6
[2024-10-14] MEDS ORDERED: LABETALOL 20 MG/4ML SYRINGE IV ONE (15:25)
[2024-10-14] MEDS ORDERED: HYDRALAZINE HCL 20 MG/ML VIAL ONE (15:27)
[2024-10-14] MEDS ORDERED: METOCLOPRAMIDE 10 MG/2mL INJ ONE (15:33)
[2024-10-14 18:39] VITALS: TEMP 97.5
[2024-10-14 18:47] VITALS: O2SAT 100
[2024-10-14 18:48] VITALS: BP 175/75
== END 2024-10-14 18:18 ==
LOC: ER 12:20
DX: K92.2 Gastrointestinal hemorrhage, unspecified (principal)
CPT/HCPCS: 36415; 74176; 80053; 83690; 85025; 85610; 85730; 86850; 86900; 86901; 96365; 96366; 96375; 99284; J0360; J0696; J2405; J2470; J2765; J7050

== ENCOUNTER 2024-12-24 18:47 | Emergency (ER) | payer OTHER, SELFPAY ==
[2024-12-24] MEDS ORDERED: HYDROCODONE/APAP 5/325 MG TAB ONE (19:23)
[2024-12-24] MEDS ORDERED: TDAP (DIPHTH,PERTUSS(ACELL),TET VAC) 0.5 ML VIAL IMVAC ONE (19:23)
--- NOTE | 2024-12-24 19:47 | RAD REPORT ---
EXAMINATION: XR LEFT TIBIA AND FIBULA CLINICAL INDICATION: . PAIN TECHNIQUE:Two view radiograph of the left tibia and fibula were obtained. COMPARISON: No prior exam. FINDINGS: No bone or joint abnormality detected. Tiny calcaneal spurs.
--- NOTE | 2024-12-24 19:47 | RAD REPORT ---
EXAMINATION: XR LEFT KNEE CLINICAL INDICATION: PAIN TECHNIQUE: Multiple projections of the left knee were obtained. COMPARISON: No prior exam. FINDINGS: No bone or joint abnormality seen.
--- NOTE | 2024-12-24 19:48 | RAD REPORT ---
EXAMINATION: XR RIGHT KNEE CLINICAL INDICATION: Male, 54 years old. PAIN TECHNIQUE: Multiple views of the right knee were obtained. COMPARISON: No prior exam. FINDINGS: No bone or joint abnormality seen. Small amount of suprapatellar joint fluid.
--- NOTE | 2024-12-24 19:49 | RAD REPORT ---
EXAM: XR LEFT HAND HISTORY: Pain. PAIN COMPARISON: None TECHNIQUE: Multiple projections of the left hand submitted. FINDINGS: There are several small erosions present throughout the carpus as well as the base of the m etacarpals and the ulnar styloid. This is often seen in cases of underlying inflammatory arthropathy. No acute fracture or dislocation seen.
--- NOTE | 2024-12-24 19:50 | RAD REPORT ---
EXAM: XR RIGHT HAND HISTORY: Pain. PAIN COMPARISON: None TECHNIQUE: Multiple projections of the right hand submitted. FINDINGS: Small erosions are seen at the head of the third and fourth metacarpals. Small erosions als o seen in the proximal carpal row as well as the ulnar styloid. This can be a result of inflammatory arthropathy. Advise clinical correlation. No acute fracture or dislocation seen..
--- NOTE | 2024-12-24 19:55 | RAD REPORT ---
EXAM: CT brain without contrast HISTORY: PAIN COMPARISON: None TECHNIQUE: Multiple contiguous axial images were obtained and a CT of the brain without contrast. Sag ittal and coronal reformats were performed. One or more of the following dose reduction techniques were used: Automated exposure control, adjust ment of the mA and/or kV according to patient size, and/or iterative reconstruction. FINDINGS: No evidence of hydrocephalus, intracranial hemorrhage, or extra-axial fluid collection. The brain is normal in morphology. No evidence of midline shift or areas of brain edema. The calvarium is intact. The visualized paranasal sinuses and mastoid air cells are essentially clear . IMPRESSION: No evidence of acute intracranial abnormality. EXAM: CT of the cervical spine without contrast HISTORY: Neck pain, injury PAIN TECHNIQUE: Multiple contiguous axial images were obtained in a CT of the cervical spine without contr ast. Sagittal and coronal reformats were performed. FINDINGS: The vertebral bodies demonstrate normal height and alignment. No evidence of acute fracture or subluxation.. Mild lower cervical degenerative changes. No prevertebral soft tissue swelling is seen. The posterior facets are well aligned. Normal alignment of the skull base with the cervical spine is seen. Emphysematous upper lung prabhakar. IMPRESSION: No evidence of acute osseous abnormality of the cervical spine.
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
[2024-12-25 19:40] VITALS: TEMP 98
[2024-12-25 19:49] VITALS: BP 165/78; O2SAT 96
== END 2024-12-24 21:01 | disposition home or self-care (01) ==
LOC: ER 18:47
DX: S00.81XA Abrasion of other part of head, initial encounter (principal); S80.812A Abrasion, left lower leg, initial encounter; V03.19XA Pedestrian with other conveyance injured in collision with car, pick-up truck or van in traffic accident, initial encounter
CPT/HCPCS: 70450; 72125; 96372; 99284